=== PATIENT | male | born 1955 | race Caucasian/White ===

== ENCOUNTER 2020-07-17 08:27 | Inpatient (IN) | payer MEDICARE, BC ==
[2020-07-17] MEDS ORDERED: ONDANSETRON 4 MG/2 ML (SDV) Z0FRAN IVP PRN (10:00)
[2020-07-17] MEDS ORDERED: REMDESIVIR INJ 100 MG in NS (IVPB) 230 ML IV SCH (10:00)
[2020-07-17] MEDS ORDERED: MELATONIN 3 MG TABLET PO PRN (10:00)
[2020-07-17] MEDS ORDERED: HYDROcodone/APAP 5 MG/325 MG (LORTAB) TAB PO PRN (10:00)
[2020-07-17] MEDS ORDERED: ACETAMINOPHEN 500 MG TAB (TYLENOL) PO PRN (10:00)
[2020-07-17] MEDS ORDERED: guaiFENesin/CODEINE (ROBITUSSIN AC) 10ML UDC PO PRN (10:00)
[2020-07-17] MEDS ORDERED: LOPERAMIDE 2 MG (IMODIUM) TABLET PO PRN (10:00)
[2020-07-17] MEDS ORDERED: ALPRAZolam 0.25 MG (XANAX) TAB PO PRN (10:00)
[2020-07-17] MEDS ORDERED: CALCIUM CARBONATE 500 MG (TUMS) TAB.CHEW PO PRN (10:00)
[2020-07-17] MEDS ORDERED: DOCUSATE SODIUM 100 MG (COLACE) CAP PO PRN (10:00)
[2020-07-17] MEDS ORDERED: diphenhydrAMINE 25 MG TAB (BENADRYL) PO PRN (10:00)
[2020-07-17] MEDS ORDERED: cefTRIAXone FOR IV USE 1,000 MG in WATER (STERILE) FOR INJECTION 10 ML IV SCH (10:00)
[2020-07-17 11:23] LABS: ABG BASE EXCESS -2.6 MMOL/L (-2.5-2.5); ABG OXYGEN SATURATION 99 % (94-100); ABG PCO2 30 MMHG (35-45); ABG PH 7.45 (7.37-7.43); ABG PO2 130 MMHG (79-93); ABG TCO2 22.1 MMOL/L (21.0-31.0)
[2020-07-17 11:25] LABS: ALLENS TEST POSITIVE; INSPIRED O2 35 L AT 95%; PATIENT TEMP 35.2; VENTILATOR NO
--- NOTE | 2020-07-17 11:38 | History & Physical ---
History of Present Illness HPI/Chief Complaint CC: Ventricular tachycardia with COVID-19 PNA HPI: This is a 65yoWM clinic patient of Ata Adair in [facility] and Dr Guerra Cardiology at [place] who presents to the [facility] ICU after transferred from [facility] due to V-tach on telemetry non-sustained and asymptomatic. Patient had been admitted to [facility] for the past 3 days for COVID-19 PNA with hypoxia along with bacterial PNA. Patient was requiring increased O2 supplement at 12L/min and placed on Vapotherm the morning of transfer but he was feeling better overall. V-tach no kimberly on tely and Dr Maldonado recommended transferring over to [facility] since [place] was on diversion. Patient has new onset DM HGA1C was 10 on admit and placed on insulin due to Decadron administration. Patient is a poor historian and was the one who told me had had CABG hx and 6 stents in the past after I specifically asked him if he had any heart issues and if he saw Cardiology in follow up. Source: patient, RN/MD, old records Exam Limitations: no limitations Date Seen 07/17/20 Time Seen by a Provider: 11:30 Attending Physician Maye Kelley DO PCP Referring Physician Date of Admission Jul 17, 2020 at 11:07 Home Medications & Allergies Home Medications Reviewed patient Home Medication Reconciliation performed by pharmacy medication reconciliations cotton program technician and/or nursing. Patients Allergies have been reviewed. Allergies Allergies Coded Allergies No Known Drug Allergies ([id number]/30/20) Past Geqjkxo-Nmnzqe-Mykzax Hx Past Med/Social Hx: Reviewed Nursing Past Med/Soc Hx, Reviewed and Corrections made Patient Social History Marrital Status: Employed/Student: employed ([employer] in [place]) Alcohol Use: Denies Use Smoking Status: Never a Smoker Immunizations Up To Date Date of Influenza Vaccine: Apr 18, 2020 Past Medical History Surgeries: CABG, Coronary Stent Cardiac: High Cholesterol, Hypertension Endocrine: Diabetes, Insulin dep (new dx 07/17/20) Review of Systems Constitutional: see HPI Respiratory: dyspnea on exertion Physical Exam Physical Exam Vital Signs Vital Signs - First Documented 07/17/20 07/17/20 07/17/20 07/17/20 11:09 12:00 13:26 14:20 Temp 35.2 Pulse 68 Resp 12 B/P (MAP) 140/78 (98) Pulse Ox 100 O2 Delivery Vapotherm O2 Flow Rate 35.00 95.00 FiO2 95 Capillary Refill : Height, Weight, BMI Height: '" Weight: lbs. oz. kg; BMI Method: General Appearance: No Apparent Distress, WD/WN, Chronically ill, Obese Eyes: Bilateral Eye Normal Inspection, Bilateral Eye PERRL HEENT: PERRL/EOMI, Normal ENT Inspection, Pharynx Normal Neck: Full Range of Motion, Normal Inspection, Non Tender, Supple, Carotid Bruit Respiratory: Chest Non Tender, Lungs Clear, No Accessory Muscle Use, No Respiratory Distress, Decreased Breath Sounds Cardiovascular: Regular Rate, Rhythm, No Edema, No Gallop, No JVD, No Murmur, Normal Peripheral Pulses Gastrointestinal: Normal Bowel Sounds, No Organomegaly, No Pulsatile Mass, Non Tender, Soft Back: Normal Inspection, No CVA Tenderness, No Vertebral Tenderness Extremity: Normal Capillary Refill, Normal Inspection, Normal Range of Motion, Non Tender, No Calf Tenderness, No Pedal Edema Neurologic/Psychiatric: Alert, Oriented x3, No Motor/Sensory Deficits, Normal Mood/Affect Skin: Normal Color, Warm/Dry Lymphatic: No Adenopathy Results Results/Procedures Labs Laboratory Tests 07/17/20 11:20 07/18/20 05:36 07/19/20 05:10 Patient resulted labs reviewed. Assessment/Plan Admission Diagnosis Assessment: COVID-19 PNA on Vapotherm V-tach on Tely at [facility] transferred for Cardiology CAD previous stents and CABG HTN New onset DM insulin dependence now hga1c 10 Plan: Insulin Cardiology Abx O2 Admission Status: Inpatient Order (span 2 midnights) Reason for Inpatient Admission: v tachy Diagnosis/Problems Diagnosis/Problems (1) COVID-19 (2) Ventricular tachycardia (3) CAD (coronary artery disease) (4) Hx of CABG (5) Diabetes mellitus, new onset (6) Obesity (7) Hypoxia (8) Hypertension MAYE KELLEY DO Jul 17, 2020 11:38
[2020-07-17 11:47] LABS: BASOPHILS % (AUTO) 0 % (0-10); EOSINOPHILS % (AUTO) 0 % (0-10); HEMATOCRIT 41 % (40-54); HEMOGLOBIN 13.8 g/dL (13.3-17.7); LYMPHOCYTES # (AUTO) 0.7 10^3/uL (1.0-4.0); LYMPHOCYTES % (AUTO) 11 % (12-44); MEAN CORPUSCULAR HEMOGLOBIN 28 pg (25-34); MEAN CORPUSCULAR HGB CONC 33 g/dL (32-36); MEAN CORPUSCULAR VOLUME 84 fL (80-99); MEAN PLATELET VOLUME 11.1 fL (9.0-12.2); MONOCYTES # (AUTO) 0.3 10^3/uL (0.0-1.0); MONOCYTES % (AUTO) 5 % (0-12); NEUTROPHILS # (AUTO) 5.1 10^3/uL (1.8-7.8); NEUTROPHILS % (AUTO) 80 % (42-75); PLATELET COUNT 318 10^3/uL (130-400); WHITE BLOOD COUNT 6.3 10^3/uL (4.3-11.0)
[2020-07-17 12:08] LABS: ALANINE AMINOTRANSFERASE 8 U/L (0-55); ALBUMIN 2.9 GM/DL (3.2-4.5); ALKALINE PHOSPHATASE 76 U/L (40-136); BILIRUBIN,TOTAL 0.3 MG/DL (0.1-1.0); BUN/CREATININE RATIO 24; CALCIUM 7.9 MG/DL (8.5-10.1); CARBON DIOXIDE 23 MMOL/L (21-32); CHLORIDE 99 MMOL/L (98-107); GFR ESTIMATED > 60; GLUCOSE 301 MG/DL (70-105); MAGNESIUM 2.6 MG/DL (1.6-2.4); POTASSIUM 4.4 MMOL/L (3.6-5.0); SODIUM 128 MMOL/L (135-145); TOTAL PROTEIN 6.1 GM/DL (6.4-8.2)
[2020-07-17] MEDS: inSUlin ASPART (NovoLOG) 1 UNIT/0.01 ML (CHARGE PER UNIT) SC SCH ×2 (12:40→17:22)
--- NOTE | 2020-07-17 12:53 | Pulmonary Consultation ---
History of Present Illness History of Present Illness Date Seen by Provider: Jul 17, 2020 Time Seen by Provider: 12:48 Date of Admission History of Present Illness 65yo pt admitted to [facility] secondary to COVID 19 and SOB, with hypoxia. Pt received all appropriate care at [facility] however continued to decline. Pt was transferred here as direct admit for higher level of care. Allergies and Home Medications Allergies Coded Allergies: No Known Drug Allergies (Unverified , 07/17/20) Home Medications Benzonatate 100 Mg Capsule, 100-200 MG PO Q4 -6H PRN for COUGH, (Reported) Carvedilol 12.5 Mg Tablet, 12.5 MG PO BID, (Reported) Clonidine HCl 0.1 Mg Tablet, 0.1 MG PO BID, (Reported) Felodipine 5 Mg Tab.er.24h, 5 MG PO DAILY, (Reported) Lisinopril 40 Mg Tablet, 40 MG PO HS, (Reported) Lovastatin 40 Mg Tablet, 40 MG PO HS, (Reported) Multivit-Min/FA/Lycopene/Lut 1 Each Tablet, 1 EACH PO DAILY, (Reported) Omeprazole 40 Mg Capsule.dr, 40 MG PO DAILY, (Reported) Promethazine HCl/Codeine 5 Ml Syrup, 5 ML PO Q4 -6H PRN for COUGH, (Reported) Terazosin HCl 5 Mg Capsule, 5 MG PO HS, (Reported) Past Ofdrzrn-Clqqnt-Qmmfbd Hx Immunizations Up To Date Date of Influenza Vaccine: Apr 18, 2020 Review of Systems Time Seen by Provider: 12:52 Sepsis Event Evaluation Height, Weight, BMI Height: '" Weight: lbs. oz. kg; BMI Method: Exam Exam Vital Signs Date Time Temp Pulse Resp B/P (MAP) Pulse Ox O2 Delivery O2 Flow Rate FiO2 07/17/20 11:09 35.2 140/78 (98) 100 Vapotherm 35.00 95.00 Height & Weight Height: '" Weight: lbs. oz. kg; BMI Method: Results Lab Laboratory Tests 07/17/20 11:20 Assessment/Plan Assessment/Plan Acute respiratory failure secondary to COVID PNA -Currently requiring 100% Vapotherm -Remdesivir -Decadron -S/p CVP -Labs reviewed -CXR pending Hyponatremia -Monitor Vtach episodes at [facility] -Cardiology following AMBROSIO GUEVARA DO Jul 17, 2020 12:53
[2020-07-17 14:04] LABS: BILIRUBIN,URINE NEGATIVE (NEGATIVE); CLARITY,URINE CLEAR; COLOR,URINE YELLOW; GLUCOSE, URINE (UA) 2+ (NEGATIVE); KETONES,URINE NEGATIVE (NEGATIVE); LEUKOCYTE ESTERASE ,URINE NEGATIVE (NEGATIVE); NITRITE,URINE NEGATIVE (NEGATIVE); PROTEIN,URINE TRACE (NEGATIVE)
[2020-07-17 14:17] LABS: AMORPHOUS SEDIMENT,UR FEW AMOR URATES /LPF; BACTERIA,URINE TRACE /HPF; SQUAMOUS EPITHELIAL CELL,UR 0-2 /HPF
[2020-07-17] MEDS ORDERED: PROM5SYR PO (14:21)
[2020-07-17] MEDS ORDERED: OMEP40CA27 PO (14:21)
[2020-07-17] MEDS ORDERED: FLD5TCR PO (14:21)
[2020-07-17] MEDS ORDERED: LOVA40TA2 PO (14:21)
[2020-07-17] MEDS ORDERED: CLN.1T PO (14:21)
[2020-07-17] MEDS ORDERED: TERA5CAP3 PO (14:21)
[2020-07-17] MEDS ORDERED: LISI40TA PO (14:21)
[2020-07-17] MEDS ORDERED: CARV12.53 PO (14:21)
[2020-07-17] MEDS ORDERED: MULT-1029 PO (14:21)
[2020-07-17] MEDS ORDERED: BENZ-36 PO (14:21)
--- NOTE | 2020-07-17 14:22 | NUR ---
UNABLE TO SPEAK WITH PT AT THIS TIME- I REACHED OUT TO HIS (THEO) AND WENT THRU THE EXT MED HISTORY TO COMPLETE THE MED REC THEO WAS ABLE TO LIST THE PTS MEDS WELL WHEN/HOW HE TAKES EACH ACCORDING TO THEO HE HAD BEEN ON ASPIRIN 81MG 1 TAB 3 TIMES WEEKLY HOWEVER SHE DOES NOT THINK HE IS STILL TAKING, THEREFORE I DID NOT INCLUDE IT ON THE MED REC OTC MEDS: MTV
--- NOTE | 2020-07-17 14:40 | Diagnostic Imaging Report ---
INDICATION: COVID positive. Time of exam 2:17 PM No prior studies are available for comparison. Changes of median sternotomy and CABG are noted. There are some patchy airspace infiltrates right mid-lower lung field. Minimal infiltrate left base is also seen. There is no effusion or pneumothorax. Pulmonary vascularity is normal. IMPRESSION: Patchy bilateral pulmonary infiltrates consistent with pneumonia. Dictated by: Dictated on workstation # [id number]
[2020-07-17 15:05] VITALS: BP 126/76
[2020-07-17] MEDS ORDERED: RT-ALBUTEROL INHALER HFA (VENTOLIN HFA) 18 GM IH PRN (15:15)
--- NOTE | 2020-07-17 16:21 | NUR ---
DR SPENCER CALLED NEW ORDERS RECEIVED. SEE ORDER HX
[2020-07-17] MEDS ORDERED: AMIODARONE INJECTION 150 MG in D5W 100 ML IVPB 100 ML IV ONE (16:30)
[2020-07-17] MEDS: inSUlin ASPART (NovoLOG) 1 UNIT/0.01 ML (CHARGE PER UNIT) SQ SCH ×2 (17:22→20:41)
[2020-07-17] MEDS: AMIODARONE INJECTION 450 MG in D5W IV SOLUTION (EXCEL) 250 ML IV SCH (17:23)
--- NOTE | 2020-07-17 19:07 | Consultation-Cardiology ---
HPI-Cardiology Cardiology Consultation: Date of Consultation 07/17/20 Time Seen by a Provider: 18:30 Date of Admission Attending Physician Maye Mistry DO Admitting Physician Consulting Physician KERRI SPENCER MD, MA, FACP, FACC, [facility], CCDS Physician requesting consult: Dr Mistry HPI: Chief Complaint: Reason for consultation: Runs of NSVT HPI 65 yo man transferred to this hosp from the [facility] where he had been admitted to Dr Mistry for COVID pneumonia and hypoxia. Had had runs of NSVT last night w/o any symptoms. Denies cp or palp or syncope. Less short of breath than at time of admission. Denies swelling. Some gen malaise present Review of Systems-Cardiology Review of Systems Constitutional: malaise, tiredness; No weight loss, No weight gain Eyes: No vision change Ears/Nose/Throat: No ear discharge, No nasal drainage, No recent hearing loss Respiratory: As described under HPI Cardiovascular: As described under HPI Gastrointestinal: No diarrhea, No nausea, No vomiting Genitourinary: No dysuria, No hematuria, No urine frequency changes Musculoskeletal: No back pain, No joint pain Skin: No rash, No ulcerations Psychiatric/Neurological: No seizure, No focal weakness, No syncope Hematologic: No bleeding abnormalities GRJ-Ystdhu-Uzrkrb Hx Immunizations Up To Date Date of Influenza Vaccine: Apr 18, 2020 Past Medical History PMH As described under Assessment. Family Medical History Family Medical History: Does not report fam h/o early CAD Allergies and Home Medications Allergies Coded Allergies: No Known Drug Allergies (Unverified , 07/17/20) Home Medications Benzonatate 100 Mg Capsule, 100-200 MG PO Q4 -6H PRN for COUGH, (Reported) Carvedilol 12.5 Mg Tablet, 12.5 MG PO BID, (Reported) Clonidine HCl 0.1 Mg Tablet, 0.1 MG PO BID, (Reported) Felodipine 5 Mg Tab.er.24h, 5 MG PO DAILY, (Reported) Lisinopril 40 Mg Tablet, 40 MG PO HS, (Reported) Lovastatin 40 Mg Tablet, 40 MG PO HS, (Reported) Multivit-Min/FA/Lycopene/Lut 1 Each Tablet, 1 EACH PO DAILY, (Reported) Omeprazole 40 Mg Capsule., 40 MG PO DAILY, (Reported) Promethazine HCl/Codeine 5 Ml Syrup, 5 ML PO Q4 -6H PRN for COUGH, (Reported) Terazosin HCl 5 Mg Capsule, 5 MG PO HS, (Reported) Patient Home Medication List Home Medication List Reviewed: Yes Physical Exam-Cardiology Physical Exam Vital Signs/I&O 07/17/20 07/17/20 07/17/20 07/17/20 11:09 11:30 12:00 13:00 Temp 35.2 Resp 12 16 B/P (MAP) 140/78 (98) 121/78 (92) 127/70 (89) Pulse Ox 100 70 97 99 O2 Delivery Vapotherm Vapotherm Vapotherm Vapotherm O2 Flow Rate 35.00 15.00 35.00 35.00 95.00 80.00 80.00 07/17/20 07/17/20 07/17/20 07/17/20 13:26 14:00 14:20 14:30 Pulse 68 Resp 19 B/P (MAP) 126/76 (93) Pulse Ox 100 O2 Delivery Vapotherm Vapotherm Vapotherm O2 Flow Rate 35.00 35.00 35.00 80.00 60.00 FiO2 95 07/17/20 07/17/20 07/17/20 07/17/20 15:00 15:05 15:20 16:00 Temp 35.2 Pulse 68 Resp 15 8 B/P (MAP) 120/85 (97) 127/91 (103) Pulse Ox 94 100 91 98 O2 Delivery Vapotherm Vapotherm Vapotherm O2 Flow Rate 35.00 35.00 35.00 60.00 60.00 FiO2 65 07/17/20 07/17/20 07/17/20 16:03 17:00 18:00 Temp 35.6 Pulse 71 74 Resp 16 18 B/P (MAP) 133/86 (102) 125/75 (92) Pulse Ox 94 97 O2 Delivery Vapotherm Vapotherm O2 Flow Rate 35.00 35.00 60.00 60.00 Capillary Refill : Constitutional: AAO x 3, well-developed, well-nourished HEENT: EOMI, hearing is well preserved; No xanthelasmas are seen Neck: carotid pulses are 2 + bilaterally, with good upstrokes Respiratory: No accessory muscle use; other (fair to good, bilat air entry) Cardiovascular: regular rate-rhythm, S1 and S2, systolic murmur (faint ANMOL at card base) Gastrointestinal: No tender; soft; No guarding, No rebound; audible bowel sounds Extremities: No clubbing, No cyanosis, No significant edema Neurologic/Psychiatric: oriented x 3, other (moves all limbs equally) Skin: No rash, No ulcerations Data Review Labs Laboratory Tests 07/17/20 11:16: Blood Gas Puncture Site LEFT RADIAL, Blood Gas Patient Temperature 35.2, Arterial Blood pH 7.45H, Arterial Blood Partial Pressure CO2 30L, Arterial Blood Partial Pressure O2 130H, Arterial Blood HCO3 21L, Arterial Blood Total CO2 22.1, Arterial Blood Oxygen Saturation 99, Arterial Blood Base Excess -2.6L, Floyd Test POSITIVE, Blood Gas Ventilator Setting NO, Blood Gas Inspired Oxygen 35 L AT 95% 07/17/20 11:20: White Blood Count 6.3, Red Blood Count 4.94, Hemoglobin 13.8, Hematocrit 41, Mean Corpuscular Volume 84, Mean Corpuscular Hemoglobin 28, Mean Corpuscular Hemoglobin Concent 33, Red Cell Distribution Width 11.9, Platelet Count 318, Mean Platelet Volume 11.1, Immature Granulocyte % (Auto) 4, Neutrophils (%) (Auto) 80H, Lymphocytes (%) (Auto) 11L, Monocytes (%) (Auto) 5, Eosinophils (%) (Auto) 0, Basophils (%) (Auto) 0, Neutrophils # (Auto) 5.1, Lymphocytes # (Auto) 0.7L, Monocytes # (Auto) 0.3, Eosinophils # (Auto) 0.0, Basophils # (Auto) 0.0, Immature Granulocyte # (Auto) 0.3H, D-Dimer 0.60H, Sodium Level 128L, Potassium Level 4.4, Chloride Level 99, Carbon Dioxide Level 23, Anion Gap 6, Blood Urea Nitrogen 26H, Creatinine 1.10, Estimat Glomerular Filtration Rate > 60, BUN/Creatinine Ratio 24, Glucose Level 301H, Calcium Level 7.9L, Corrected Calcium 8.8, Magnesium Level 2.6H, Total Bilirubin 0.3, Aspartate Amino Transf (AST/SGOT) 23, Alanine Aminotransferase (ALT/SGPT) 8, Alkaline Phosphatase 76, Troponin I < 0.028, B-Type Natriuretic Peptide 38.5, Total Protein 6.1L, Albumin 2.9L, Procalcitonin 0.07 07/17/20 14:00: Urine Color YELLOW, Urine Clarity CLEAR, Urine pH 6.0, Urine Specific [place] 1.020, Urine Protein TRACEH, Urine Glucose (UA) 2+H, Urine Ketones NEGATIVE, Urine Nitrite NEGATIVE, Urine Bilirubin NEGATIVE, Urine Urobilinogen 0.2, Urine Leukocyte Esterase NEGATIVE, Urine RBC (Auto) 3+H, Urine RBC 10-25H, Urine WBC NONE, Urine Squamous Epithelial Cells 0-2, Urine Crystals PRESENTH, Urine Amorphous Sediment FEW [place] URATESH, Urine Bacteria TRACE, Urine Casts NONE, Urine Mucus NEGATIVE, Urine Culture Indicated NO 07/17/20 16:02: Glucometer 271H Laboratory Tests 07/17/20 11:20 A/P-Cardiology Assessment/Admission Diagnosis COVID-19 pneumonia NSVT, asymptomatic CAD. H/o CABG in 2001; subsequent coronary interventions by Dr Guerra at [facility], details unknown Ischemic cardiomyopathy. Echo of 07/17/20 shows LVEF 40-45%, anteroseptal and inferoseptal akinesis, PASP 20-25 mmHg No evidence of acute coronary syndrome Metabolic abnormalities: hyperglycemia and hyponatremia, possibly due to high- dose steroid therapy, managed by Med and ICU services Discussion and Recomendations Continue bb, BERNY inhibitor, and ASA for CAD and ischemic cm Add amiodarone Try to obtain cardiac records from [facility] Monitor labs Management of COVID-[address] Mistry and Dr Heredia Clinical Quality Measures DVT/VTE Risk/Contraindication: Risk Factor Score Per Nursin RFS Level Per Nursing on Admit: 4+=Very High KERRI SPENCER MD FACP [facility] CCDS Jul 17, 2020 19:07
[2020-07-17] MEDS: RT-ALBUTEROL INHALER HFA (VENTOLIN HFA) 18 GM IH SCH (19:14)
[2020-07-17] MEDS: SENNA W/DOCUSATE (SENOKOT S) TABLET PO SCH (20:40)
[2020-07-17] MEDS ORDERED: cloNIDine 0.1 MG (CATAPRES) TAB PO SCH (21:00)
[2020-07-17] MEDS ORDERED: CARVEDILOL 12.5 MG (COREG) TABLET PO SCH (21:00)
[2020-07-17] MEDS: TERAZOSIN 5 MG (HYTRIN) CAPSULE PO SCH (21:22)
[2020-07-17] MEDS: APIXABAN 5 MG (ELIQUIS) TABLET PO SCH (21:22)
[2020-07-17] MEDS: SIMvastatin 20 MG (ZOCOR) TAB PO SCH (21:22)
[2020-07-18] MEDS: AMIODARONE INJECTION 450 MG in D5W IV SOLUTION (EXCEL) 250 ML IV SCH (01:29)
--- NOTE | 2020-07-18 02:58 | NUR ---
DR CALLOWAY NOTIFIED OF PATIENT'S BRADYCARDIA. AGREED TO STOP AMIODARONE. NO FURTHER ORDERS AT THIS TIME. WILL CONTINUE TO CLOSELY MONITOR.
[2020-07-18] MEDS: RT-ALBUTEROL INHALER HFA (VENTOLIN HFA) 18 GM IH SCH ×5 (03:39→19:46)
[2020-07-18] MEDS ORDERED: ATROPINE INJ 0.4 MG/ML SDV ONE (04:44)
[2020-07-18] MEDS ORDERED: FAMOTIDINE 20 MG (PEPCID) TABLET PO PRN (04:45)
--- NOTE | 2020-07-18 04:48 | Pulmonary Progress Note ---
Subjective Time Seen by a Provider: 04:43 Sepsis Event Evaluation Height, Weight, BMI Height: '" Weight: lbs. oz. kg; BMI Method: Exam Exam Vital Signs Date Time Temp Pulse Resp B/P (MAP) Pulse Ox O2 Delivery O2 Flow Rate FiO2 07/18/20 03:40 93 Vapotherm 32.00 65 07/18/20 00:00 Vapotherm 35.00 60.00 07/17/20 23:45 36.8 07/17/20 23:00 56 16 107/73 (84) 97 Vapotherm 35.00 60.00 07/17/20 22:00 65 17 116/86 (96) 98 Vapotherm 35.00 60.00 07/17/20 21:04 93 Vapotherm 35.00 65 07/17/20 21:00 63 15 138/79 (98) 98 Vapotherm 35.00 60.00 07/17/20 20:45 35.00 65.00 07/17/20 20:45 Vapotherm 07/17/20 20:00 64 17 124/75 (91) 98 Vapotherm 35.00 60.00 07/17/20 20:00 93 Vapotherm 35.00 65 07/17/20 19:43 36.0 07/17/20 19:14 93 Vapotherm 35.00 65 07/17/20 19:00 68 07/17/20 19:00 68 16 121/78 (92) 94 Vapotherm 35.00 60.00 07/17/20 18:00 74 18 125/75 (92) 97 Vapotherm 35.00 60.00 07/17/20 17:00 71 16 133/86 (102) 94 Vapotherm 35.00 60.00 07/17/20 16:03 35.6 07/17/20 16:00 8 127/91 (103) 98 Vapotherm 35.00 60.00 07/17/20 15:20 91 Vapotherm 35.00 65 07/17/20 15:05 35.2 68 100 07/17/20 15:00 15 120/85 (97) 94 Vapotherm 35.00 60.00 07/17/20 14:30 Vapotherm 35.00 60.00 07/17/20 14:20 68 07/17/20 14:00 19 126/76 (93) 100 Vapotherm 35.00 80.00 07/17/20 13:26 Vapotherm 35.00 95 07/17/20 13:00 16 127/70 (89) 99 Vapotherm 35.00 80.00 07/17/20 12:00 12 121/78 (92) 97 Vapotherm 35.00 80.00 07/17/20 11:30 70 Vapotherm 15.00 07/17/20 11:09 35.2 140/78 (98) 100 Vapotherm 35.00 95.00 I & O 07/18/20 07:00 Intake Total 640 ml Output Total 1575 ml Balance -935 ml Height & Weight Height: '" Weight: lbs. oz. kg; BMI Method: Results Lab Laboratory Tests 07/17/20 11:20 Assessment/Plan Assessment/Plan Acute respiratory failure secondary to COVID PNA -Currently requiring 65% Vapotherm -Remdesivir -Decadron -S/p CVP -Labs reviewed -CXR pending Hyponatremia -Monitor Vtach episodes at [facility] -Cardiology following Bradycardia -Ammio gtt held secondary to bradycardia Hypotension -improved DVT/GI ppx -Eliquis per home med -AMBROSIO Lino DO Jul 18, 2020 04:48
[2020-07-18 05:53] LABS: BASOPHILS # (AUTO) 0.1 10^3/uL (0.0-0.1); BASOPHILS % (AUTO) 0 % (0-10); EOSINOPHILS # (AUTO) 0.1 10^3/uL (0.0-0.3); EOSINOPHILS % (AUTO) 1 % (0-10); HEMATOCRIT 42 % (40-54); LYMPHOCYTES % (AUTO) 14 % (12-44); MEAN CORPUSCULAR HEMOGLOBIN 28 pg (25-34); MEAN CORPUSCULAR HGB CONC 33 g/dL (32-36); MEAN CORPUSCULAR VOLUME 85 fL (80-99); MEAN PLATELET VOLUME 10.7 fL (9.0-12.2); MONOCYTES % (AUTO) 7 % (0-12); NEUTROPHILS # (AUTO) 10.5 10^3/uL (1.8-7.8); NEUTROPHILS % (AUTO) 74 % (42-75); PLATELET COUNT 347 10^3/uL (130-400); WHITE BLOOD COUNT 14.3 10^3/uL (4.3-11.0)
[2020-07-18 06:21] LABS: ALANINE AMINOTRANSFERASE 9 U/L (0-55); ALBUMIN 2.9 GM/DL (3.2-4.5); ALKALINE PHOSPHATASE 73 U/L (40-136); BILIRUBIN,TOTAL 0.3 MG/DL (0.1-1.0); BUN/CREATININE RATIO 24; CARBON DIOXIDE 22 MMOL/L (21-32); CHLORIDE 103 MMOL/L (98-107); CREATININE SERUM 1.04 MG/DL (0.60-1.30); GFR ESTIMATED > 60; MAGNESIUM 2.7 MG/DL (1.6-2.4); PHOSPHORUS 3.9 MG/DL (2.3-4.7); POTASSIUM 3.7 MMOL/L (3.6-5.0); SODIUM 133 MMOL/L (135-145); TOTAL PROTEIN 5.7 GM/DL (6.4-8.2)
[2020-07-18] MEDS ORDERED: DEXTROSE 50% 50 ML (IMS) SYR ONE (06:22)
[2020-07-18 06:23] LABS: GLUCOSE 49 MG/DL (70-105)
[2020-07-18 06:29] LABS: LYMPHOCYTES % (MANUAL) 8 %; MONOCYTES % (MANUAL) 8 %; NEUTROPHILS % (MANUAL) 84 %; RBC MORPH NORMAL
[2020-07-18] MEDS: inSUlin ASPART (NovoLOG) 1 UNIT/0.01 ML (CHARGE PER UNIT) SQ SCH ×4 (06:34→20:49)
--- NOTE | 2020-07-18 06:34 | NUR ---
0630 hrs CRITICAL BS [address] GUEVARA NOTIFIED AT BEDSIDE. ORDER RECEIVED FOR 1 AMP D50.
[2020-07-18] MEDS: MAGNESIUM 1 GM/100 ML IVPB 100 ML IV SCH (06:36)
[2020-07-18] MEDS: KCL 20 MEQ TAB (K-DUR) PO SCH (06:36)
[2020-07-18] MEDS: POTASSIUM CL 10MEQ/50ML IVPB 50 ML IV SCH (06:36)
[2020-07-18] MEDS: inSUlin ASPART (NovoLOG) 1 UNIT/0.01 ML (CHARGE PER UNIT) SC SCH ×3 (07:18→17:12)
--- NOTE | 2020-07-18 07:21 | Diagnostic Imaging Report ---
INDICATION: Hypoxia, COVID positive COMPARISON: 07/17/2020 FINDINGS: Single view chest demonstrates stable unchanged bilateral pulmonary infiltrates. There are a few questionable round lucencies in the left base which could represent pneumatoceles. Consider CT imaging. There was no pneumothorax or large effusion. Sternal wires midline. IMPRESSION: 1. Unchanged bilateral pulmonary infiltrates. 2. Nonspecific lucencies left base. Consider CT imaging. Report was faxed to [facility] Infection Control by codey at 7:20am. Dictated by: Dictated on workstation # [id number]
[2020-07-18] MEDS: SENNA W/DOCUSATE (SENOKOT S) TABLET PO SCH ×2 (08:07→20:48)
[2020-07-18] MEDS: cefTRIAXone FOR IV USE 1,000 MG in WATER (STERILE) FOR INJECTION 10 ML IV SCH (08:07)
[2020-07-18] MEDS: dexAMETHasone 6 MG TAB (DECADRON) PO SCH (08:07)
[2020-07-18] MEDS: PANTOPRAZOLE 40 MG (PROTONIX) TAB PO SCH (08:07)
[2020-07-18] MEDS: APIXABAN 5 MG (ELIQUIS) TABLET PO SCH ×2 (08:07→20:48)
[2020-07-18] MEDS: ASPIRIN E.C. 81 MG (ECOTRIN) TAB PO SCH (08:07)
[2020-07-18] MEDS ORDERED: REMDESIVIR INJ 100 MG in NS (IVPB) 230 ML IV SCH (10:00)
--- NOTE | 2020-07-18 10:40 | NUR ---
THIS RN SPOKE WITH PT'S THEO AND UPDATE GIVEN.
[2020-07-18] MEDS: amLODIPine 5 MG (NORVASC) TAB PO SCH (11:00)
[2020-07-18] MEDS: lisINopril 40 MG (PRINIVIL) TABLET PO SCH (11:00)
--- NOTE | 2020-07-18 12:22 | Progress Note - Hospitalist ---
Subjective HPI/CC On Admission Date Seen by Provider: Jul 18, 2020 Time Seen by Provider: 11:00 Subjective/Events-last exam Pt had a low sugar Will adjust insulin Monitor closely No CP Bradycardia noted Cardiology appreciated Vapotherm Review of Systems Pulmonary: Dyspnea Objective Exam Vital Signs Vital Signs Date Time Temp Pulse Resp B/P (MAP) Pulse Ox O2 Delivery O2 Flow Rate FiO2 07/19/20 03:22 93 Vapotherm 30.00 60 07/19/20 01:00 64 07/19/20 00:06 36.3 07/19/20 00:00 15 123/74 (90) Capillary Refill : General Appearance: No Apparent Distress, WD/WN, Chronically ill Respiratory: Lungs Clear Cardiovascular: Regular Rate, Rhythm Neurologic/Psychiatric: Alert, Oriented x3, No Motor/Sensory Deficits, Normal Mood/Affect Results/Procedures Lab Laboratory Tests 07/19/20 05:10 Patient resulted labs reviewed. Assessment/Plan Assessment and Plan Assess & Plan/Chief Complaint Assessment: COVID-19 PNA on Vapotherm V-tach on Tely at [facility] transferred for Cardiology CAD previous stents and CABG HTN New onset DM insulin dependence now hga1c 10 Plan: Insulin Cardiology Abx O2 07/18/20: Insulin decrease Cardiology appreciated O2 Clinical Quality Measures DVT/VTE Risk/Contraindication: Risk Factor Score Per Nursin RFS Level Per Nursing on Admit: 4+=Very High NANDINI KELLEY DO Jul 18, 2020 12:22
--- NOTE | 2020-07-18 18:52 | Progress Note - Cardiology ---
Cardiology SOAP Progress Note Subjective: No new symptoms Objective: I&O/Vital Signs 07/18/20 07/18/20 07/18/20 07/18/20 07:00 07:00 07:15 08:00 Pulse 42 37 49 Resp 11 17 B/P (MAP) 105/62 (76) 101/78 (86) Pulse Ox 92 95 95 O2 Delivery Vapotherm Vapotherm Vapotherm O2 Flow Rate 35.00 20.00 35.00 60.00 60.00 FiO2 60 07/18/20 07/18/20 07/18/20 07/18/20 08:30 09:00 10:00 10:25 Pulse 48 46 Resp 16 17 B/P (MAP) 131/79 (96) 118/70 (86) Pulse Ox 93 94 94 90 O2 Delivery Vapotherm Vapotherm Vapotherm Vapotherm O2 Flow Rate 35.00 35.00 35.00 20.00 60.00 60.00 FiO2 65 60 07/18/20 07/18/20 07/18/20 07/18/20 11:00 12:00 13:00 13:00 Pulse 51 66 74 60 Resp 16 24 16 B/P (MAP) 132/74 (93) 133/75 (106) 130/76 (96) Pulse Ox 94 92 94 O2 Delivery Vapotherm Vapotherm Vapotherm O2 Flow Rate 35.00 35.00 35.00 60.00 60.00 60.00 07/18/20 07/18/20 07/18/20 07/18/20 14:10 14:39 15:00 16:00 Pulse 68 66 72 Resp 20 16 20 B/P (MAP) 132/72 (92) 132/75 (94) 127/82 (97) Pulse Ox 92 92 93 94 O2 Delivery Vapotherm Vapotherm Vapotherm Vapotherm O2 Flow Rate 25.00 20.00 25.00 25.00 60.00 60.00 60.00 FiO2 60 07/18/20 07/18/20 07/18/20 16:00 17:00 18:00 Temp 35.6 Pulse 65 71 Resp 17 21 B/P (MAP) 130/81 (97) 131/85 (100) Pulse Ox 94 97 O2 Delivery Vapotherm Vapotherm O2 Flow Rate 25.00 25.00 60.00 60.00 07/18/20 00:00 Intake Total 390 ml Output Total 1375 ml Balance -985 ml Respiratory: No accessory muscle use Cardiovascular: regular rate-rhythm Results/Procedures: Labs Laboratory Tests 07/17/20 20:28: Glucometer 201H 07/18/20 05:36: White Blood Count 14.3H, Red Blood Count 4.99, Hemoglobin 14.0, Hematocrit 42, Mean Corpuscular Volume 85, Mean Corpuscular Hemoglobin 28, Mean Corpuscular Hemoglobin Concent 33, Red Cell Distribution Width 12.1, Platelet Count 347, Mean Platelet Volume 10.7, Immature Granulocyte % (Auto) 4, Neutrophils (%) (Auto) 74, Lymphocytes (%) (Auto) 14, Monocytes (%) (Auto) 7, Eosinophils (%) (Auto) 1, Basophils (%) (Auto) 0, Neutrophils # (Auto) 10.5H, Lymphocytes # (Auto) 2.0, Monocytes # (Auto) 1.0, Eosinophils # (Auto) 0.1, Basophils # (Auto) 0.1, Immature Granulocyte # (Auto) 0.6H, Neutrophils % (Manual) 84, Lymphocytes % (Manual) 8, Monocytes % (Manual) 8, Blood Morphology Comment NORMAL, Sodium Level 133L, Potassium Level 3.7, Chloride Level 103, Carbon Dioxide Level 22, Anion Gap 8, Blood Urea Nitrogen 25H, Creatinine 1.04, Estimat Glomerular Filtration Rate > 60, BUN/Creatinine Ratio 24, Glucose Level 49*L, Calcium Level 8.0L, Corrected Calcium 8.9, Phosphorus Level 3.9, Magnesium Level 2.7H, Total Bilirubin 0.3, Aspartate Amino Transf (AST/SGOT) 28, Alanine Aminotransferase (ALT/SGPT) 9, Alkaline Phosphatase 73, Troponin I < 0.028, Total Protein 5.7L, Albumin 2.9L 07/18/20 06:50: Glucometer 200H 07/18/20 08:24: Glucometer 151H 07/18/20 10:04: Glucometer 175H 07/18/20 15:59: Glucometer 234H Microbiology 07/17/20 MRSA Screen - Final, Complete MRSA not isolated Laboratory Tests 07/17/20 11:20 07/18/20 05:36 A/P: Assessment: COVID-19 pneumonia NSVT, asymptomatic, probably precipitated by COVID-19, no evidence of [place] Bradycardia on 07/18/10 CAD. H/o CABG in 2002: HOUGH to LAD, SVG to OM1, SVG to OM2, SVG to diag, SVG to RCA, LVEF approx 45; recores of subsequent coronary interventions by Dr Guerra at [facility] are not available Ischemic cardiomyopathy. Echo of 07/17/20 shows LVEF 40-45%, anteroseptal and inferoseptal akinesis, PASP 20-25 mmHg No evidence of acute coronary syndrome Metabolic abnormalities: hyperglycemia and hyponatremia, possibly due to high- dose steroid therapy, managed by Med and ICU services Plan: Hold clonidine and bb and amiodarone because of bradycardia Resume bb if bradycardia settles down Records of CABG of 2001 reviewed (see above). PCI records not available Monitor labs Management of COVID-[address] Mistry and KERRI Hedrick MD FACP [facility] CCDS Jul 18, 2020 18:52
[2020-07-18] MEDS: TERAZOSIN 5 MG (HYTRIN) CAPSULE PO SCH (20:52)
[2020-07-18] MEDS: SIMvastatin 20 MG (ZOCOR) TAB PO SCH (20:52)
[2020-07-19] MEDS: RT-ALBUTEROL INHALER HFA (VENTOLIN HFA) 18 GM IH SCH ×6 (03:24→22:07)
--- NOTE | 2020-07-19 04:10 | Pulmonary Progress Note ---
Subjective Time Seen by a Provider: 04:09 Subjective/Events-last exam No complications noted. Sepsis Event Evaluation Height, Weight, BMI Height: '" Weight: lbs. oz. kg; BMI Method: Exam Exam Vital Signs Date Time Temp Pulse Resp B/P (MAP) Pulse Ox O2 Delivery O2 Flow Rate FiO2 07/19/20 03:22 93 Vapotherm 30.00 60 07/19/20 00:28 Vapotherm 30.00 65.00 07/19/20 00:06 36.3 07/19/20 00:00 64 15 123/74 (90) 97 Vapotherm 25.00 60.00 07/18/20 23:00 69 18 110/71 (84) 96 Vapotherm 25.00 60.00 07/18/20 22:00 75 16 113/77 (89) 92 Vapotherm 25.00 60.00 07/18/20 21:00 78 19 135/83 (100) 94 Vapotherm 25.00 60.00 07/18/20 20:54 Vapotherm 25.00 60.00 07/18/20 20:00 77 129/83 (98) 94 Vapotherm 25.00 60.00 07/18/20 20:00 93 Vapotherm 25.00 60 07/18/20 19:46 93 Vapotherm 25.00 60 07/18/20 19:00 77 18 127/87 (100) 96 Vapotherm 25.00 60.00 07/18/20 19:00 77 07/18/20 18:58 35.7 07/18/20 18:00 71 21 131/85 (100) 97 Vapotherm 25.00 60.00 07/18/20 17:00 65 17 130/81 (97) 94 Vapotherm 25.00 60.00 07/18/20 16:00 35.6 07/18/20 16:00 72 20 127/82 (97) 94 Vapotherm 25.00 60.00 07/18/20 15:00 66 16 132/75 (94) 93 Vapotherm 25.00 60.00 07/18/20 14:39 92 Vapotherm 20.00 60 07/18/20 14:10 68 20 132/72 (92) 92 Vapotherm 25.00 60.00 07/18/20 13:00 60 16 130/76 (96) 94 Vapotherm 35.00 60.00 07/18/20 13:00 74 07/18/20 12:00 66 24 133/75 (106) 92 Vapotherm 35.00 60.00 07/18/20 11:00 51 16 132/74 (93) 94 Vapotherm 35.00 60.00 07/18/20 10:25 90 Vapotherm 20.00 60 07/18/20 10:00 46 17 118/70 (86) 94 Vapotherm 35.00 60.00 07/18/20 09:00 48 16 131/79 (96) 94 Vapotherm 35.00 60.00 07/18/20 08:30 93 Vapotherm 35.00 65 07/18/20 08:00 49 17 101/78 (86) 95 Vapotherm 35.00 60.00 07/18/20 07:15 95 Vapotherm 20.00 60 07/18/20 07:00 37 07/18/20 07:00 42 11 105/62 (76) 92 Vapotherm 35.00 60.00 07/18/20 06:00 44 20 100/61 (74) 95 Vapotherm 35.00 60.00 07/18/20 05:00 45 24 118/74 (89) 95 Vapotherm 35.00 60.00 I & O 07/19/20 07:00 Intake Total 2055 ml Output Total 2780 ml Balance -725 ml Height & Weight Height: '" Weight: lbs. oz. kg; BMI Method: Results Lab Laboratory Tests 07/17/20 11:20 07/18/20 05:36 Assessment/Plan Assessment/Plan Acute respiratory failure secondary to COVID PNA -Currently requiring 60% Vapotherm -Remdesivir -Decadron -S/p CVP -Labs reviewed -CXR pending -Check CT of chest and abd with contrast PNA -Currently on ROcephin -Cultures pending -MRSA negative -Laps pending Hyponatremia -Monitor V[place] episodes [place] [facility] [place]Cardiology following Bradycardia -Ammio gtt held secondary to bradycardia Hypotension -improved DVT/GI ppx -Eliquis per home med -AMBROSIO Lino DO Jul 19, 2020 04:10
[2020-07-19] MEDS: POTASSIUM CL 10MEQ/50ML IVPB 50 ML IV SCH (05:42)
[2020-07-19] MEDS: MAGNESIUM 1 GM/100 ML IVPB 100 ML IV SCH (05:42)
[2020-07-19] MEDS: KCL 20 MEQ TAB (K-DUR) PO SCH (05:42)
[2020-07-19] MEDS: dexAMETHasone 6 MG TAB (DECADRON) PO SCH (06:00)
[2020-07-19] MEDS: inSUlin ASPART (NovoLOG) 1 UNIT/0.01 ML (CHARGE PER UNIT) SQ SCH ×4 (06:00→20:42)
[2020-07-19] MEDS: inSUlin ASPART (NovoLOG) 1 UNIT/0.01 ML (CHARGE PER UNIT) SC SCH ×3 (06:09→17:01)
[2020-07-19 06:30] LABS: CHLORIDE 100 MMOL/L (98-107); POTASSIUM 4.3 MMOL/L (3.6-5.0); SODIUM 131 MMOL/L (135-145)
[2020-07-19 06:31] LABS: CALCIUM 7.9 MG/DL (8.5-10.1); GLUCOSE 98 MG/DL (70-105)
[2020-07-19 06:33] LABS: CARBON DIOXIDE 23 MMOL/L (21-32)
[2020-07-19 06:35] LABS: CREATININE SERUM 0.91 MG/DL (0.60-1.30); GFR ESTIMATED > 60
[2020-07-19 06:36] LABS: BUN/CREATININE RATIO 21
[2020-07-19 06:37] LABS: MAGNESIUM 1.7 MG/DL (1.6-2.4)
--- NOTE | 2020-07-19 08:28 | Diagnostic Imaging Report ---
Indication: COVID positive, shortness of air. Time of exam: 2:17 AM Correlation is made with prior chest earlier same day. Changes of median sternotomy are noted. Bilateral infiltrates mid and lower lung pal persist showing no real change. There is no effusion or pneumothorax. There are changes of median sternotomy and CABG. Impression: No significant change in bilateral pulmonary infiltrates when compared to examination one day earlier. Dictated by: Dictated on workstation # [id number]
[2020-07-19] MEDS: cefTRIAXone FOR IV USE 1,000 MG in WATER (STERILE) FOR INJECTION 10 ML IV SCH (08:30)
[2020-07-19] MEDS: SENNA W/DOCUSATE (SENOKOT S) TABLET PO SCH ×2 (08:30→20:41)
[2020-07-19] MEDS: ASPIRIN E.C. 81 MG (ECOTRIN) TAB PO SCH (08:30)
[2020-07-19] MEDS: APIXABAN 5 MG (ELIQUIS) TABLET PO SCH ×2 (08:31→20:42)
[2020-07-19] MEDS: amLODIPine 5 MG (NORVASC) TAB PO SCH (08:31)
[2020-07-19] MEDS: PANTOPRAZOLE 40 MG (PROTONIX) TAB PO SCH (08:31)
[2020-07-19] MEDS: lisINopril 40 MG (PRINIVIL) TABLET PO SCH (08:31)
[2020-07-19 08:56] LABS: BASOPHILS % (AUTO) 0 % (0-10); EOSINOPHILS % (AUTO) 0 % (0-10); HEMATOCRIT 39 % (40-54); LYMPHOCYTES # (AUTO) 1.2 10^3/uL (1.0-4.0); LYMPHOCYTES % (AUTO) 12 % (12-44); MEAN CORPUSCULAR HEMOGLOBIN 28 pg (25-34); MEAN CORPUSCULAR HGB CONC 34 g/dL (32-36); MEAN CORPUSCULAR VOLUME 85 fL (80-99); MEAN PLATELET VOLUME 11.2 fL (9.0-12.2); MONOCYTES # (AUTO) 0.6 10^3/uL (0.0-1.0); MONOCYTES % (AUTO) 6 % (0-12); NEUTROPHILS # (AUTO) 7.9 10^3/uL (1.8-7.8); NEUTROPHILS % (AUTO) 78 % (42-75); PLATELET COUNT 310 10^3/uL (130-400); WHITE BLOOD COUNT 10.1 10^3/uL (4.3-11.0)
[2020-07-19] MEDS ORDERED: NS 100 ML (IVPB) BAG IV ONE (12:00)
[2020-07-19] MEDS ORDERED: HOLD METFORMIN - RECEIVED CONTRAST 20 ML VIAL IV SCH (12:00)
[2020-07-19] MEDS ORDERED: IOHEXOL 350 MG/ML 100 ML (OMNIPAQUE 350) VIAL IV ONE (12:00)
--- NOTE | 2020-07-19 12:16 | Progress Note - Hospitalist ---
Subjective HPI/CC On Admission Date Seen by Provider: Jul 19, 2020 Time Seen by Provider: 12:00 CC: Ventricular tachycardia with COVID-19 PNA HPI: This is a 65yoWM clinic patient of Ata Adair in [facility] and Dr Charlie Wiley at [place] who presents to the [facility] ICU after transferred from [facility] due to V-tach on telemetry non-sustained and asymptomatic. Patient had been admitted to [facility] for the past 3 days for COVID-19 PNA with hypoxia along with bacterial PNA. Patient was requiring increased O2 supplement at 12L/min and placed on Vapotherm the morning of transfer but he was feeling better overall. V-tach noted on tely and Dr Maldonado recommended transferring over to [facility] since [place] was on diversion. Patient has new onset DM HGA1C was 10 on admit and placed on insulin due to Decadron administration. Patient is a poor historian and was the one who told me had had CABG hx and 6 stents in the past after I sp ecifically asked him if he had any heart issues and if he saw Cardiology in follow up. Subjective/Events-last exam CT ordered by DR Heredia, no acute issues Breathing better Slow progress Monitoring closely High risk for decompensation Review of Systems General: Fatigue, Malaise Pulmonary: Dyspnea, Cough Objective Exam Vital Signs Vital Signs Date Time Temp Pulse Resp B/P (MAP) Pulse Ox O2 Delivery O2 Flow Rate FiO2 07/19/20 18:00 87 10 133/82 (99) 95 Vapotherm 30.00 60.00 07/19/20 16:01 36.1 07/19/20 15:42 60 Capillary Refill : General Appearance: No Apparent Distress, WD/WN, Chronically ill Respiratory: Chest Non Tender, Lungs Clear, Normal Breath Sounds, No Accessory Muscle Use, No Respiratory Distress Cardiovascular: Regular Rate, Rhythm, No Edema, No Gallop, No JVD, No Murmur, Normal Peripheral Pulses Neurologic/Psychiatric: Alert, Oriented x3, No Motor/Sensory Deficits, Normal Mood/Affect Results/Procedures Lab Laboratory Tests 07/19/20 05:10 07/19/20 05:30 07/19/20 11:50 Patient resulted labs reviewed. Assessment/Plan Assessment and Plan Assess & Plan/Chief Complaint Assessment: COVID-19 PNA on Vapotherm V-tach on Tely at [facility] transferred for Cardiology CAD previous stents and CABG HTN New onset DM insulin dependence now hga1c 10 Plan: Insulin Cardiology Abx O2 07/18/20: Insulin decrease Cardiology appreciated O2 07/19/20: Monitor in ICU Vtachy monitoring Diagnosis/Problems Diagnosis/Problems (1) COVID-19 (2) Ventricular tachycardia (3) CAD (coronary artery disease) (4) Hx of CABG (5) Diabetes mellitus, new onset (6) Obesity (7) Hypoxia (8) Hypertension Clinical Quality Measures DVT/VTE Risk/Contraindication: Risk Factor Score Per Nursin RFS Level Per Nursing on Admit: 4+=Very High NANDINI KELLEY DO Jul 19, 2020 12:16
[2020-07-19 12:28] LABS: CHLORIDE 99 MMOL/L (98-107); POTASSIUM 4.7 MMOL/L (3.6-5.0); SODIUM 130 MMOL/L (135-145)
[2020-07-19 12:30] LABS: CALCIUM 8.1 MG/DL (8.5-10.1); GLUCOSE 236 MG/DL (70-105)
[2020-07-19 12:32] LABS: CARBON DIOXIDE 23 MMOL/L (21-32)
[2020-07-19 12:34] LABS: GFR ESTIMATED > 60
[2020-07-19 12:35] LABS: BUN/CREATININE RATIO 22
--- NOTE | 2020-07-19 13:08 | Diagnostic Imaging Report ---
PROCEDURE: CT chest, abdomen, and pelvis with contrast. TECHNIQUE: Multiple contiguous axial images were obtained through the chest, abdomen, and pelvis after the administration of intravenous contrast. Auto Exposure Controls were utilized during the CT exam to meet ALARA standards for radiation dose reduction. INDICATION: COVID positive and possible mass. No prior studies are available for comparison. CT CHEST: No axillary lymphadenopathy is seen. No definite mediastinal or hilar lymphadenopathy is seen. There is no pericardial fluid. Trace bilateral pleural effusions are identified. Patchy airspace and groundglass infiltrates are identified in bilateral upper and lower lobes consistent with pneumonia. No parenchymal mass is seen. There are changes of median sternotomy. IMPRESSION: Bilateral airspace and ground glass pulmonary infiltrates consistent with pneumonia. No other significant abnormality is detected. CT ABDOMEN AND PELVIS: Liver and gallbladder are unremarkable. There is no biliary ductal dilatation. Pancreas and spleen are unremarkable. No adrenal mass is detected. Kidneys contain numerous cortical low density suggestive of cysts. No hydronephrosis is identified. Aorta is heavily calcified but non-aneurysmal. Colon demonstrates moderate stool. Small bowel is nondistended. No definite free fluid or fluid collection is identified. Bladder is decompressed by Fierro catheter. Prostate is unremarkable. No abdominal or pelvic lymphadenopathy is seen. Bony structures are nonacute. IMPRESSION: Moderate stool in the colon. No acute feature in the abdomen or pelvis is seen. No mass or lymphadenopathy is identified. Dictated by: Dictated on workstation # [id number]
--- NOTE | 2020-07-19 14:47 | Progress Note - Cardiology ---
Cardiology SOAP Progress Note Subjective: No new symptoms Objective: I&O/Vital Signs 07/19/20 07/19/20 07/19/20 07/19/20 03:00 03:22 04:00 05:00 Pulse 73 72 65 Resp 12 8 13 B/P (MAP) 131/76 (94) 130/81 (100) 113/77 (90) Pulse Ox 92 93 95 96 O2 Delivery Vapotherm Vapotherm Vapotherm Vapotherm O2 Flow Rate 30.00 30.00 30.00 30.00 65.00 65.00 65.00 FiO2 60 07/19/20 07/19/20 07/19/20 07/19/20 06:00 06:46 07:00 08:00 Pulse 67 71 67 63 Resp 13 16 16 B/P (MAP) 126/86 (101) 127/81 (96) 137/76 (96) Pulse Ox 92 95 93 O2 Delivery Vapotherm Vapotherm Vapotherm O2 Flow Rate 30.00 30.00 30.00 65.00 65.00 65.00 07/19/20 07/19/20 07/19/20 07/19/20 08:03 08:18 08:29 08:39 Temp 36.0 Pulse Ox 94 90 O2 Delivery Vapotherm Vapotherm O2 Flow Rate 30.00 30.00 30.00 60.00 FiO2 60 60 07/19/20 07/19/20 07/19/20 07/19/20 09:00 10:00 10:50 11:00 Pulse 77 74 77 Resp 21 23 B/P (MAP) 131/75 (93) 138/75 (96) 124/80 (95) Pulse Ox 92 93 93 91 O2 Delivery Vapotherm Vapotherm Vapotherm Vapotherm O2 Flow Rate 30.00 30.00 30.00 30.00 60.00 60.00 60.00 FiO2 60 07/19/20 07/19/20 07/19/20 11:45 12:00 13:03 Temp 36.0 Pulse 83 83 Resp 9 B/P (MAP) 136/90 (105) Pulse Ox 90 O2 Delivery Vapotherm O2 Flow Rate 30.00 60.00 07/19/20 00:00 Intake Total 1200 ml Output Total 1880 ml Balance -680 ml Respiratory: No accessory muscle use Cardiovascular: regular rate-rhythm Results/Procedures: Labs Laboratory Tests 12/31/20 15:59: Glucometer 234H 07/18/20 20:31: Glucometer 194H 07/19/20 05:10: Sodium Level 131L, Potassium Level 4.3, Chloride Level 100, Carbon Dioxide Level 23, Anion Gap 8, Blood Urea Nitrogen 19H, Creatinine 0.91, Estimat Glomerular Filtration Rate > 60, BUN/Creatinine Ratio 21, Glucose Level 98, Calcium Level 7.9L, Phosphorus Level 3.8, Magnesium Level 1.7, Procalcitonin 0.14H 07/19/20 05:30: White Blood Count 10.1, Red Blood Count 4.59, Hemoglobin 13.0L, Hematocrit 39L, Mean Corpuscular Volume 85, Mean Corpuscular Hemoglobin 28, Mean Corpuscular Hemoglobin Concent 34, Red Cell Distribution Width 12.2, Platelet Count 310, Mean Platelet Volume 11.2, Immature Granulocyte % (Auto) 4, Neutrophils (%) (Auto) 78H, Lymphocytes (%) (Auto) 12, Monocytes (%) (Auto) 6, Eosinophils (%) (Auto) 0, Basophils (%) (Auto) 0, Neutrophils # (Auto) 7.9H, Lymphocytes # (Auto) 1.2, Monocytes # (Auto) 0.6, Eosinophils # (Auto) 0.0, Basophils # (Auto) 0.0, Immature Granulocyte # (Auto) 0.4H 07/19/20 06:00: Glucometer 96 07/19/20 11:46: Glucometer 229H 07/19/20 11:50: Sodium Level 130L, Potassium Level 4.7, Chloride Level 99, Carbon Dioxide Level 23, Anion Gap 8, Blood Urea Nitrogen 22H, Creatinine 1.00, Estimat Glomerular Filtration Rate > 60, BUN/Creatinine Ratio 22, Glucose Level 236H, Calcium Level 8.1L Microbiology 07/17/20 MRSA Screen - Final, Complete MRSA not isolated Laboratory Tests 07/18/20 05:36 07/19/20 05:10 07/19/20 05:30 07/19/20 11:50 A/P: Assessment: COVID-19 pneumonia NSVT, asymptomatic, probably precipitated by COVID-19, no evidence of MS Bradycardia on 07/18/10 CAD. H/o CABG in 2001: HOUGH to LAD, SVG to OM1, SVG to OM2, SVG to diag, SVG to RCA, LVEF approx 45; recores of subsequent coronary interventions by Dr Guerra at [facility] are not available Ischemic cardiomyopathy. Echo of 07/17/20 shows LVEF 40-45%, anteroseptal and inferoseptal akinesis, PASP 20-25 mmHg No evidence of acute coronary syndrome Metabolic abnormalities: hyperglycemia and hyponatremia, possibly due to high- dose steroid therapy, managed by Med and ICU services Plan: Bradycardia appears to be settling down. Resume bb in a lower dose and titrate up, if tolerated Monitor labs Management of COVID-[address] Mistry and KERRI Hedrick MD FACP [facility] CCDS Jul 19, 2020 14:47
--- NOTE | 2020-07-19 16:50 | NUR ---
THIS RN SPOKE WITH PT AT THIS TIME. UPDATED ON PT STATUS ET UPDATES FOR DAY. ANSWERED WIFES QUESTIONS.
--- NOTE | 2020-07-19 18:20 | NUR ---
PT THEO CALLED BACK WITH FURTHER QUESTIONS REGARDING PT CARE. ANSWERED QUESTIONS.
[2020-07-19] MEDS ORDERED: CARVEDILOL 6.25 MG (COREG) TAB ONE (20:09)
[2020-07-19] MEDS: CARVEDILOL 6.25 MG (COREG) TAB PO SCH (20:42)
[2020-07-19] MEDS: SIMvastatin 20 MG (ZOCOR) TAB PO SCH (20:42)
[2020-07-19] MEDS: TERAZOSIN 5 MG (HYTRIN) CAPSULE PO SCH (20:42)
[2020-07-20] MEDS: RT-ALBUTEROL INHALER HFA (VENTOLIN HFA) 18 GM IH SCH ×6 (01:31→21:07)
[2020-07-20 05:21] LABS: BASOPHILS % (AUTO) 0 % (0-10); EOSINOPHILS # (AUTO) 0.1 10^3/uL (0.0-0.3); EOSINOPHILS % (AUTO) 0 % (0-10); HEMATOCRIT 42 % (40-54); HEMOGLOBIN 14.1 g/dL (13.3-17.7); LYMPHOCYTES # (AUTO) 2.8 10^3/uL (1.0-4.0); LYMPHOCYTES % (AUTO) 18 % (12-44); MEAN CORPUSCULAR HEMOGLOBIN 28 pg (25-34); MEAN CORPUSCULAR HGB CONC 33 g/dL (32-36); MEAN CORPUSCULAR VOLUME 85 fL (80-99); MEAN PLATELET VOLUME 10.7 fL (9.0-12.2); MONOCYTES % (AUTO) 7 % (0-12); NEUTROPHILS # (AUTO) 10.8 10^3/uL (1.8-7.8); NEUTROPHILS % (AUTO) 71 % (42-75); PLATELET COUNT 353 10^3/uL (130-400); WHITE BLOOD COUNT 15.3 10^3/uL (4.3-11.0)
[2020-07-20 05:33] LABS: CHLORIDE 101 MMOL/L (98-107); POTASSIUM 4.2 MMOL/L (3.6-5.0); SODIUM 133 MMOL/L (135-145)
[2020-07-20 05:34] LABS: CALCIUM 8.4 MG/DL (8.5-10.1)
[2020-07-20 05:36] LABS: CARBON DIOXIDE 23 MMOL/L (21-32)
[2020-07-20] MEDS ORDERED: DEXTROSE 50% 50 ML (IMS) SYR ONE (05:37)
[2020-07-20 05:38] LABS: CREATININE SERUM 0.98 MG/DL (0.60-1.30); PHOSPHORUS 4.1 MG/DL (2.3-4.7)
[2020-07-20 05:39] LABS: BUN/CREATININE RATIO 22; GLUCOSE 43 MG/DL (70-105)
[2020-07-20 05:40] LABS: GFR ESTIMATED > 60
[2020-07-20 05:41] LABS: MAGNESIUM 1.9 MG/DL (1.6-2.4)
[2020-07-20] MEDS: inSUlin ASPART (NovoLOG) 1 UNIT/0.01 ML (CHARGE PER UNIT) SC SCH ×3 (05:50→17:45)
[2020-07-20] MEDS: POTASSIUM CL 10MEQ/50ML IVPB 50 ML IV SCH (05:50)
[2020-07-20] MEDS: dexAMETHasone 6 MG TAB (DECADRON) PO SCH (05:50)
[2020-07-20] MEDS: MAGNESIUM 1 GM/100 ML IVPB 100 ML IV SCH (05:50)
[2020-07-20] MEDS: KCL 20 MEQ TAB (K-DUR) PO SCH (05:50)
[2020-07-20] MEDS: inSUlin ASPART (NovoLOG) 1 UNIT/0.01 ML (CHARGE PER UNIT) SQ SCH ×4 (05:50→19:54)
--- NOTE | 2020-07-20 06:23 | NUR ---
PT AM LAB GLUCOSE LEVEL RESULTS AT 43. FINGER STICK BLOOD GLUCOSE RESULTED IN 52. PT IS ALERT ON ASSESSMENT. ORANGE JUICE WITH SUGAR AND PEANUT BUTTER DELANEY CRACKERS WERE GIVEN. E-ICU CALLED AND UPDATED. FINGER STICK GLUCOSE AFTER SNACK WAS 76. WILL CONTINUE TO MONITOR.
--- NOTE | 2020-07-20 07:28 | Progress Note - Hospitalist ---
Subjective HPI/CC On Admission Date Seen by Provider: Jul 20, 2020 Time Seen by Provider: 11:00 CC: Ventricular tachycardia with COVID-19 PNA HPI: This is a 65yoWM clinic patient of Ata Adair in [facility] and Dr Charlie Wiley at [place] who presents to the [facility] ICU after transferred from [facility] due to V-tach on telemetry non-sustained and asymptomatic. Patient had been admitted to [facility] for the past 3 days for COVID-19 PNA with hypoxia along with bacterial PNA. Patient was requiring increased O2 supplement at 12L/min and placed on Vapotherm the morning of transfer but he was feeling better overall. V-tach noted on tely and Dr Maldonado recommended transferring over to [facility] since [place] was on diversion. Patient has new onset DM HGA1C was 10 on admit and placed on insulin due to Decadron administration. Patient is a poor historian and was the one who told me had had CABG hx and 6 stents in the past after I sp ecifically asked him if he had any heart issues and if he saw Cardiology in follow up. Subjective/Events-last exam Patient doing better Moving to [facility] CV finally in will give today Updated his No issues No pain DC Levemir due to low sugars Review of Systems General: Fatigue, Malaise Pulmonary: Dyspnea, Cough Objective Exam Vital Signs Vital Signs Date Time Temp Pulse Resp B/P (MAP) Pulse Ox O2 Delivery O2 Flow Rate FiO2 07/21/20 04:03 36.3 07/21/20 04:00 59 20 121/75 (90) 96 Vapotherm 35.00 50.00 07/21/20 02:04 50 Capillary Refill : General Appearance: No Apparent Distress, WD/WN, Chronically ill Respiratory: Chest Non Tender, Lungs Clear, Normal Breath Sounds, No Accessory Muscle Use, No Respiratory Distress Cardiovascular: Regular Rate, Rhythm, No Edema, No Gallop, No JVD, No Murmur, Normal Peripheral Pulses Neurologic/Psychiatric: Alert, Oriented x3, No Motor/Sensory Deficits, Normal Mood/Affect Results/Procedures Lab Laboratory Tests 07/21/20 04:37 Patient resulted labs reviewed. Assessment/Plan Assessment and Plan Assess & Plan/Chief Complaint Assessment: COVID-19 PNA on Vapotherm V-tach on Tely at [facility] transferred for Cardiology CAD previous stents and CABG HTN New onset DM insulin dependence now hga1c 10 Plan: Insulin Cardiology Abx O2 07/18/20: Insulin decrease Cardiology appreciated O2 07/19/20: Monitor in ICU Vtachy monitoring 07/20/20: Monitor closely CSD move Vapotherm Diagnosis/Problems Diagnosis/Problems (1) COVID-19 (2) Ventricular tachycardia (3) CAD (coronary artery disease) (4) Hx of CABG (5) Diabetes mellitus, new onset (6) Obesity (7) Hypoxia (8) Hypertension Clinical Quality Measures DVT/VTE Risk/Contraindication: Risk Factor Score Per Nursin RFS Level Per Nursing on Admit: 4+=Very High NANDINI KELLEY DO Jul 20, 2020 07:28
--- NOTE | 2020-07-20 07:50 | Diagnostic Imaging Report ---
INDICATION: COVID positive, shortness of air. TECHNIQUE: Single view chest 2:38 AM. CORRELATION STUDY: 07/19/2020 FINDINGS: Prior sternotomy changes. Heart size and mediastinum are generally stable. Bilateral pulmonary infiltrates particularly mid and lower lung pal left greater than right do persist. Findings however overall perhaps slightly improved. IMPRESSION: 1. Bilateral pulmonary infiltrates, stable to slightly improved. Dictated by: Dictated on workstation # [id number]
[2020-07-20] MEDS: CARVEDILOL 6.25 MG (COREG) TAB PO SCH ×2 (08:55→19:52)
[2020-07-20] MEDS: ASPIRIN E.C. 81 MG (ECOTRIN) TAB PO SCH (08:55)
[2020-07-20] MEDS: cefTRIAXone FOR IV USE 1,000 MG in WATER (STERILE) FOR INJECTION 10 ML IV SCH (08:55)
[2020-07-20] MEDS: APIXABAN 5 MG (ELIQUIS) TABLET PO SCH ×2 (08:55→19:51)
[2020-07-20] MEDS: SENNA W/DOCUSATE (SENOKOT S) TABLET PO SCH ×2 (08:55→19:51)
[2020-07-20] MEDS: PANTOPRAZOLE 40 MG (PROTONIX) TAB PO SCH (08:55)
[2020-07-20] MEDS: lisINopril 40 MG (PRINIVIL) TABLET PO SCH (08:55)
[2020-07-20] MEDS: amLODIPine 5 MG (NORVASC) TAB PO SCH (08:55)
--- NOTE | 2020-07-20 13:21 | Progress Note - Cardiology ---
Cardiology SOAP Progress Note Subjective: No new symptoms Objective: I&O/Vital Signs 07/20/20 07/20/20 07/20/20 07/20/20 01:25 01:31 02:00 03:00 Pulse 64 65 58 Resp 17 12 9 B/P (MAP) 127/79 (99) 137/79 (111) Pulse Ox 93 98 95 96 O2 Delivery Vapotherm Vapotherm Vapotherm Vapotherm O2 Flow Rate 35.00 35.00 35.00 35.00 65.00 65.00 65.00 FiO2 65 07/20/20 07/20/20 07/20/20 07/20/20 04:00 04:30 05:00 06:00 Temp 36.3 Pulse 52 48 49 Resp 13 13 16 B/P (MAP) 119/72 (94) 118/69 (92) 133/78 (96) Pulse Ox 96 94 91 O2 Delivery Vapotherm Vapotherm Vapotherm O2 Flow Rate 35.00 35.00 35.00 65.00 65.00 65.00 07/20/20 07/20/20 07/20/20 07/20/20 07:00 07:00 07:11 08:00 Pulse 44 48 45 Resp 11 14 B/P (MAP) 108/64 (79) 111/64 (80) Pulse Ox 97 99 96 O2 Delivery Vapotherm Vapotherm Vapotherm O2 Flow Rate 35.00 35.00 35.00 65.00 65.00 FiO2 65 07/20/20 07/20/20 07/20/20 07/20/20 08:00 09:00 10:00 10:52 Pulse 62 57 B/P (MAP) 119/78 (92) 132/73 (92) Pulse Ox 94 90 94 91 O2 Delivery Vapotherm Vapotherm Vapotherm Vapotherm O2 Flow Rate 95.00 35.00 35.00 35.00 65.00 65.00 FiO2 55 55 07/20/20 07/20/20 07/20/20 07/20/20 11:00 12:00 12:38 13:00 Pulse 74 64 63 72 Resp 16 19 16 B/P (MAP) 119/82 (94) 119/82 (94) 139/77 (97) Pulse Ox 89 93 92 O2 Delivery Vapotherm Vapotherm Vapotherm O2 Flow Rate 35.00 35.00 35.00 65.00 65.00 65.00 07/20/20 00:00 Intake Total 1860 ml Output Total 2125 ml Balance -265 ml Results/Procedures: Labs Laboratory Tests 07/19/20 16:00: Glucometer 234H 07/19/20 19:25: Glucometer 286H 07/20/20 04:43: White Blood Count 15.3H, Red Blood Count 4.99, Hemoglobin 14.1, Hematocrit 42, Mean Corpuscular Volume 85, Mean Corpuscular Hemoglobin 28, Mean Corpuscular Hemoglobin Concent 33, Red Cell Distribution Width 12.3, Platelet Count 353, Mean Platelet Volume 10.7, Immature Granulocyte % (Auto) 4, Neutrophils (%) (Auto) 71, Lymphocytes (%) (Auto) 18, Monocytes (%) (Auto) 7, Eosinophils (%) (Auto) 0, Basophils (%) (Auto) 0, Neutrophils # (Auto) 10.8H, Lymphocytes # (Auto) 2.8, Monocytes # (Auto) 1.0, Eosinophils # (Auto) 0.1, Basophils # (Auto) 0.0, Immature Granulocyte # (Auto) 0.6H, Sodium Level 133L, Potassium Level 4.2, Chloride Level 101, Carbon Dioxide Level 23, Anion Gap 9, Blood Urea Nitrogen 22H, Creatinine 0.98, Estimat Glomerular Filtration Rate > 60, BUN/Creatinine Ratio 22, Glucose Level 43*L, Calcium Level 8.4L, Phosphorus Level 4.1, Magnesium Level 1.9 07/20/20 05:44: Glucometer 52*L 07/20/20 06:19: Glucometer 76 07/20/20 10:44: Glucometer 275H Microbiology 07/17/20 MRSA Screen - Final, Complete MRSA not isolated Laboratory Tests 07/19/20 05:10 07/19/20 05:30 07/19/20 11:50 07/20/20 04:43 A/P: Assessment: COVID-19 pneumonia NSVT, asymptomatic, probably precipitated by COVID-19, no evidence of [place] Bradycardia on 07/18/10, amiodarone and beta-blockers d/c'd. resumed lower dose of bb on 07/19/20 No evidence of acute coronary syndrome CAD. - H/o CABG in 2001: HOUGH to LAD, SVG to OM1, SVG to OM2, SVG to diag, SVG to RCA, LVEF approx 45 - Cath [address] Guerra at [facility]: HOUGH to LAD patent, SVG to RCA patent, other grafts occluded; pt underwent stenting x 2 of the first OM of LCX Ischemic cardiomyopathy. Echo of 07/17/20 shows LVEF 40-45%, anteroseptal and inferoseptal akinesis, PASP 20-25 mmHg PAD: PCI to bilateral iliacs, L hypogastric, and L sup fem by Dr Guerra at [facility] Metabolic abnormalities: hyperglycemia and hyponatremia, possibly due to high- dose steroid therapy, managed by Med and ICU services Plan: Continue current regimen. Up-titrate beta-kanika if heart rate and bp tolerate Monitor labs Management of COVID-[address] Mistry and KERRI Hedrick MD FACP [facility] CCDS Jul 20, 2020 13:21
[2020-07-20] MEDS ORDERED: NS (IVPB) 250 ML ONE (16:57)
[2020-07-20] MEDS: SIMvastatin 20 MG (ZOCOR) TAB PO SCH (19:51)
[2020-07-20] MEDS: TERAZOSIN 5 MG (HYTRIN) CAPSULE PO SCH (19:52)
[2020-07-21] MEDS: RT-ALBUTEROL INHALER HFA (VENTOLIN HFA) 18 GM IH SCH ×6 (02:04→23:18)
[2020-07-21 04:48] LABS: BASOPHILS % (AUTO) 0 % (0-10); EOSINOPHILS % (AUTO) 0 % (0-10); HEMATOCRIT 40 % (40-54); HEMOGLOBIN 13.3 g/dL (13.3-17.7); LYMPHOCYTES # (AUTO) 1.6 10^3/uL (1.0-4.0); LYMPHOCYTES % (AUTO) 15 % (12-44); MEAN CORPUSCULAR HEMOGLOBIN 28 pg (25-34); MEAN CORPUSCULAR HGB CONC 33 g/dL (32-36); MEAN CORPUSCULAR VOLUME 85 fL (80-99); MEAN PLATELET VOLUME 10.8 fL (9.0-12.2); MONOCYTES # (AUTO) 0.6 10^3/uL (0.0-1.0); MONOCYTES % (AUTO) 5 % (0-12); NEUTROPHILS # (AUTO) 8.3 10^3/uL (1.8-7.8); NEUTROPHILS % (AUTO) 76 % (42-75); PLATELET COUNT 306 10^3/uL (130-400); WHITE BLOOD COUNT 10.9 10^3/uL (4.3-11.0)
[2020-07-21 05:05] LABS: CHLORIDE 101 MMOL/L (98-107); POTASSIUM 4.3 MMOL/L (3.6-5.0); SODIUM 133 MMOL/L (135-145)
[2020-07-21 05:06] LABS: CALCIUM 8.2 MG/DL (8.5-10.1)
[2020-07-21 05:07] LABS: GLUCOSE 75 MG/DL (70-105)
[2020-07-21 05:08] LABS: CARBON DIOXIDE 24 MMOL/L (21-32)
[2020-07-21 05:11] LABS: CREATININE SERUM 0.88 MG/DL (0.60-1.30); GFR ESTIMATED > 60
[2020-07-21 05:12] LABS: BUN/CREATININE RATIO 25
[2020-07-21 05:13] LABS: MAGNESIUM 1.8 MG/DL (1.6-2.4)
[2020-07-21] MEDS: inSUlin ASPART (NovoLOG) 1 UNIT/0.01 ML (CHARGE PER UNIT) SQ SCH ×4 (05:34→20:57)
[2020-07-21] MEDS: inSUlin ASPART (NovoLOG) 1 UNIT/0.01 ML (CHARGE PER UNIT) SC SCH ×3 (05:35→17:17)
[2020-07-21] MEDS: dexAMETHasone 6 MG TAB (DECADRON) PO SCH (06:04)
[2020-07-21] MEDS: ASPIRIN E.C. 81 MG (ECOTRIN) TAB PO SCH (08:02)
[2020-07-21] MEDS: SENNA W/DOCUSATE (SENOKOT S) TABLET PO SCH ×2 (08:02→21:03)
[2020-07-21] MEDS: cefTRIAXone FOR IV USE 1,000 MG in WATER (STERILE) FOR INJECTION 10 ML IV SCH (08:02)
[2020-07-21] MEDS: amLODIPine 5 MG (NORVASC) TAB PO SCH (08:02)
[2020-07-21] MEDS: APIXABAN 5 MG (ELIQUIS) TABLET PO SCH ×2 (08:02→20:57)
[2020-07-21] MEDS: PANTOPRAZOLE 40 MG (PROTONIX) TAB PO SCH (08:02)
[2020-07-21] MEDS: CARVEDILOL 6.25 MG (COREG) TAB PO SCH (08:02)
[2020-07-21] MEDS: lisINopril 40 MG (PRINIVIL) TABLET PO SCH (08:02)
--- NOTE | 2020-07-21 11:49 | Progress Note - Hospitalist ---
Subjective HPI/CC On Admission Date Seen by Provider: Jul 21, 2020 Time Seen by Provider: 11:00 CC: Ventricular tachycardia with COVID-19 PNA HPI: This is a 65yoWM clinic patient of Ata Adair in [facility] and Dr Charlie Wiley at [place] who presents to the [facility] ICU after transferred from [facility] due to V-tach on telemetry non-sustained and asymptomatic. Patient had been admitted to [facility] for the past 3 days for COVID-19 PNA with hypoxia along with bacterial PNA. Patient was requiring increased O2 supplement at 12L/min and placed on Vapotherm the morning of transfer but he was feeling better overall. V-tach noted on tely and Dr Maldonado recommended transferring over to [facility] since [place] was on diversion. Patient has new onset DM HGA1C was 10 on admit and placed on insulin due to Decadron administration. Patient is a poor historian and was the one who told me had had CABG hx and 6 stents in the past after I sp ecifically asked him if he had any heart issues and if he saw Cardiology in follow up. Subjective/Events-last exam Received CVP yesterday No issues today Wants to go home soon Still on Vapotherm BM treatment will be started NO pain reported Review of Systems General: Fatigue Pulmonary: Dyspnea Objective Exam Vital Signs Vital Signs Date Time Temp Pulse Resp B/P (MAP) Pulse Ox O2 Delivery O2 Flow Rate FiO2 07/21/20 18:34 97 Vapotherm 35.00 50 07/21/20 17:00 75 115/53 (73) 07/21/20 15:51 35.9 07/21/20 04:00 20 Capillary Refill : General Appearance: No Apparent Distress, WD/WN, Chronically ill Respiratory: Chest Non Tender, Lungs Clear, Normal Breath Sounds, No Accessory Muscle Use, No Respiratory Distress, Decreased Breath Sounds Cardiovascular: Regular Rate, Rhythm Neurologic/Psychiatric: Alert, Oriented x3, No Motor/Sensory Deficits, Normal Mood/Affect Results/Procedures Lab Laboratory Tests 07/21/20 04:37 Patient resulted labs reviewed. Assessment/Plan Assessment and Plan Assess & Plan/Chief Complaint Assessment: COVID-19 PNA on Vapotherm V-tach on Tely at [facility] transferred for Cardiology CAD previous stents and CABG HTN New onset DM insulin dependence now hga1c 10 Plan: Insulin Cardiology Abx O2 07/18/20: Insulin decrease Cardiology appreciated O2 07/19/20: Monitor in ICU Vtachy monitoring 07/20/20: Monitor closely CSD move Vapotherm 07/21/20: Move to [facility] s/p CVP DC Levemir due to hypoglycemia Diagnosis/Problems Diagnosis/Problems (1) COVID-19 (2) Ventricular tachycardia (3) CAD (coronary artery disease) (4) Hx of CABG (5) Diabetes mellitus, new onset (6) Obesity (7) Hypoxia (8) Hypertension Clinical Quality Measures DVT/VTE Risk/Contraindication: Risk Factor Score Per Nursin RFS Level Per Nursing on Admit: 4+=Very High NANDINI KELLEY DO Jul 21, 2020 11:49
[2020-07-21] MEDS ORDERED: BISACODYL 10 MG SUPP (DULCOLAX) PR PRN (12:00)
[2020-07-21] MEDS ORDERED: LACTULOSE SYRUP 10GM/15ML (ENULOSE) 30ML UDC PO ONE (12:00)
[2020-07-21] MEDS ORDERED: polyethylene glycoL POWDER 17 GM (MIRALAX) PACK PO ONE (12:00)
--- NOTE | 2020-07-21 15:52 | Progress Note - Cardiology ---
Cardiology SOAP Progress Note Subjective: No cp or palp or syncope Gen malaise Shortness of breath has improved No n/v Objective: I&O/Vital Signs 07/21/20 07/21/20 07/21/20 07/21/20 04:00 04:03 07:00 08:00 Temp 36.3 Pulse 59 65 75 Resp 20 B/P (MAP) 121/75 (90) 117/72 (87) Pulse Ox 96 93 O2 Delivery Vapotherm Vapotherm O2 Flow Rate 35.00 35.00 50.00 50.00 07/21/20 07/21/20 07/21/20 07/21/20 08:01 08:23 11:05 12:00 Temp 36.3 Pulse 72 B/P (MAP) 121/71 (88) Pulse Ox 94 95 92 O2 Delivery Vapotherm Vapotherm Vapotherm O2 Flow Rate 35.00 35.00 35.00 50.00 FiO2 50 50 07/21/20 07/21/20 12:22 15:05 Pulse 76 Pulse Ox 91 O2 Delivery Vapotherm O2 Flow Rate 35.00 FiO2 50 07/21/20 00:00 Intake Total 300 ml Output Total 750 ml Balance -450 ml Constitutional: AAO x 3, well-developed, well-nourished Respiratory: No accessory muscle use; other (fair to good, bilateral air entry) Cardiovascular: regular rate-rhythm, S1 and S2, systolic murmur (soft ANMOL at ca rd base) Gastrointestional: No tender, No guarding, No rebound; audible bowel sounds Extremities: No clubbing, No cyanosis, No significant edema Neurologic/Psychiatric: other (moves all limbs equally) Skin: No rash on exposed areas, No ulcerations on exposed areas Results/Procedures: Labs Laboratory Tests 07/20/20 17:26: Glucometer 266H 07/20/20 19:48: Glucometer 208H 07/21/20 04:37: White Blood Count 10.9, Red Blood Count 4.76, Hemoglobin 13.3, Hematocrit 40, Mean Corpuscular Volume 85, Mean Corpuscular Hemoglobin 28, Mean Corpuscular Hemoglobin Concent 33, Red Cell Distribution Width 12.1, Platelet Count 306, Mean Platelet Volume 10.8, Immature Granulocyte % (Auto) 4, Neutrophils (%) (Auto) 76H, Lymphocytes (%) (Auto) 15, Monocytes (%) (Auto) 5, Eosinophils (%) (Auto) 0, Basophils (%) (Auto) 0, Neutrophils # (Auto) 8.3H, Lymphocytes # (Auto) 1.6, Monocytes # (Auto) 0.6, Eosinophils # (Auto) 0.0, Basophils # (Auto) 0.0, Immature Granulocyte # (Auto) 0.4H, Sodium Level 133L, Potassium Level 4.3, Chloride Level 101, Carbon Dioxide Level 24, Anion Gap 8, Blood Urea Nitrogen 22H, Creatinine 0.88, Estimat Glomerular Filtration Rate > 60, BUN/Creatinine Ratio 25, Glucose Level 75, Calcium Level 8.2L, Phosphorus Level 4.0, Magnesium Level 1.8 07/21/20 11:02: Glucometer 270H Microbiology 07/17/20 MRSA Screen - Final, Complete MRSA not isolated Laboratory Tests 07/20/20 04:43 07/21/20 04:37 A/P: Assessment: COVID-19 pneumonia NSVT on 07/16/20 , asymptomatic, probably precipitated by COVID-19, no evidence of [place] Bradycardia on 07/18/10, amiodarone and beta-blockers d/c'd. resumed lower dose of bb on 07/19/20 No evidence of acute coronary syndrome CAD. - H/o CABG in 2001: HOUGH to LAD, SVG to OM1, SVG to OM2, SVG to diag, SVG to RCA, LVEF approx 45 - Cath [address] Guerra at [facility]: HOUGH to LAD patent, SVG to RCA patent, other grafts occluded; pt underwent stenting x 2 of the first OM of LCX Ischemic cardiomyopathy. Echo of 07/17/20 shows LVEF 40-45%, anteroseptal and inferoseptal akinesis, PASP 20-25 mmHg PAD: PCI to bilateral iliacs, L hypogastric, and L sup fem by Dr Guerra at [facility] Plan: I spoke with him and answered his questions today Increase beta-kanika if heart rate and bp tolerate Monitor labs Management of COVID-19 is by KERRI Holder MD [facility] Jul 21, 2020 15:52
[2020-07-21] MEDS: CARVEDILOL 12.5 MG (COREG) TABLET PO SCH (20:57)
[2020-07-21] MEDS: LACTULOSE SYRUP 10GM/15ML (ENULOSE) 30ML UDC PO SCH (20:57)
[2020-07-21] MEDS ORDERED: CARVEDILOL 6.25 MG (COREG) TAB PO SCH (21:00)
[2020-07-21] MEDS: SIMvastatin 20 MG (ZOCOR) TAB PO SCH (21:03)
[2020-07-21] MEDS: TERAZOSIN 5 MG (HYTRIN) CAPSULE PO SCH (21:03)
[2020-07-21] MEDS: polyethylene glycoL POWDER 17 GM (MIRALAX) PACK PO SCH (21:03)
[2020-07-22] MEDS: RT-ALBUTEROL INHALER HFA (VENTOLIN HFA) 18 GM IH SCH ×5 (02:14→23:23)
--- NOTE | 2020-07-22 04:02 | Pulmonary Progress Note ---
Subjective Time Seen by a Provider: 04:00 Subjective/Events-last exam No complications noted. Sepsis Event Evaluation Height, Weight, BMI Height: '" Weight: lbs. oz. kg; BMI Method: Exam Exam Vital Signs Date Time Temp Pulse Resp B/P (MAP) Pulse Ox O2 Delivery O2 Flow Rate FiO2 07/22/20 02:30 Nasal Cannula 3.00 07/22/20 02:14 96 Nasal Cannula 4.00 07/22/20 00:36 36.0 73 20 135/81 (99) 95 Nasal Cannula 4.00 07/21/20 23:18 95 Vapotherm 30.00 40 07/21/20 22:30 Nasal Cannula 5.00 07/21/20 20:00 94 Vapotherm 30.00 50 07/21/20 19:40 35.8 74 20 122/74 (90) 94 Vapotherm 35.00 40.00 07/21/20 19:00 74 07/21/20 18:34 97 Vapotherm 35.00 50 07/21/20 17:00 75 115/53 (73) 94 Vapotherm 35.00 50.00 07/21/20 16:00 68 126/76 (93) 92 Vapotherm 35.00 50.00 07/21/20 15:51 35.9 07/21/20 15:05 91 Vapotherm 35.00 50 07/21/20 12:22 76 07/21/20 12:00 72 121/71 (88) 92 Vapotherm 35.00 50.00 07/21/20 11:05 95 Vapotherm 35.00 50 07/21/20 08:23 94 Vapotherm 35.00 50 07/21/20 08:01 36.3 07/21/20 08:00 75 117/72 (87) 93 Vapotherm 35.00 50.00 07/21/20 07:00 65 07/21/20 04:03 36.3 07/21/20 04:00 59 20 121/75 (90) 96 Vapotherm 35.00 50.00 I & O 07/22/20 06:59 Intake Total 1525 ml Output Total 2400 ml Balance -875 ml Height & Weight Height: '" Weight: lbs. oz. kg; BMI Method: General Appearance: No Apparent Distress, WD/WN, Chronically ill HEENT: PERRL/EOMI, Normal ENT Inspection, Pharynx Normal Neck: Full Range of Motion, Normal Inspection, Non Tender, Supple, Carotid Bruit Respiratory: Chest Non Tender, Lungs Clear, Normal Breath Sounds, No Accessory Muscle Use, No Respiratory Distress, Decreased Breath Sounds Cardiovascular: Regular Rate, Rhythm Extremity: Normal Capillary Refill, Normal Inspection, Normal Range of Motion, Non Tender, No Calf Tenderness, No Pedal Edema Neurologic/Psychiatric: Alert, Oriented x3, No Motor/Sensory Deficits, Normal Mood/Affect Skin: Normal Color, Warm/Dry Lymphatic: No Adenopathy Results Lab Laboratory Tests 07/20/20 04:43 07/21/20 04:37 Assessment/Plan Assessment/Plan Acute respiratory failure secondary to COVID PNA -Currently requiring 3 liter NC -s/p Remdesivir -Decadron -S/p CVP -Labs reviewed -CXR pending PNA -Currently on ROcephin -Cultures pending -MRSA negative -Laps pending Hyponatremia -[place] [facility] [place]Cardiology following Bradycardia -Ammio gtt held secondary to bradycardia Hypotension -improved DVT/GI ppx -Eliquis per home med -AMBROSIO Lino DO Jul 22, 2020 04:02
[2020-07-22 04:10] LABS: BASOPHILS % (AUTO) 0 % (0-10); EOSINOPHILS % (AUTO) 0 % (0-10); HEMATOCRIT 43 % (40-54); HEMOGLOBIN 14.6 g/dL (13.3-17.7); LYMPHOCYTES # (AUTO) 0.9 10^3/uL (1.0-4.0); LYMPHOCYTES % (AUTO) 10 % (12-44); MEAN CORPUSCULAR HEMOGLOBIN 31 pg (25-34); MEAN CORPUSCULAR HGB CONC 34 g/dL (32-36); MEAN CORPUSCULAR VOLUME 90 fL (80-99); MEAN PLATELET VOLUME 10.2 fL (9.0-12.2); MONOCYTES # (AUTO) 0.6 10^3/uL (0.0-1.0); MONOCYTES % (AUTO) 7 % (0-12); NEUTROPHILS % (AUTO) 81 % (42-75); PLATELET COUNT 266 10^3/uL (130-400); WHITE BLOOD COUNT 8.6 10^3/uL (4.3-11.0)
[2020-07-22 04:34] LABS: ALBUMIN 3.6 GM/DL (3.2-4.5); CHLORIDE 103 MMOL/L (98-107); POTASSIUM 4.3 MMOL/L (3.6-5.0); SODIUM 136 MMOL/L (135-145)
[2020-07-22 04:35] LABS: CALCIUM 8.6 MG/DL (8.5-10.1)
[2020-07-22 04:36] LABS: GLUCOSE 114 MG/DL (70-105)
[2020-07-22 04:37] LABS: TOTAL PROTEIN 6.8 GM/DL (6.4-8.2)
[2020-07-22 04:38] LABS: BILIRUBIN,TOTAL 0.4 MG/DL (0.1-1.0); CARBON DIOXIDE 21 MMOL/L (21-32)
[2020-07-22 04:40] LABS: ALKALINE PHOSPHATASE 65 U/L (40-136); GFR ESTIMATED > 60
[2020-07-22 04:41] LABS: BUN/CREATININE RATIO 17
[2020-07-22 04:43] LABS: ALANINE AMINOTRANSFERASE 145 U/L (0-55)
[2020-07-22] MEDS: dexAMETHasone 6 MG TAB (DECADRON) PO SCH (06:23)
[2020-07-22] MEDS: inSUlin ASPART (NovoLOG) 1 UNIT/0.01 ML (CHARGE PER UNIT) SQ SCH (06:23)
[2020-07-22] MEDS ORDERED: WATER (STERILE) FOR INJECTION 10 ML ONE (07:56)
[2020-07-22] MEDS ORDERED: cefTRIAXone 1,000 MG IV (ROCEPHIN) VIAL ONE (07:56)
[2020-07-22] MEDS: amLODIPine 5 MG (NORVASC) TAB PO SCH (08:52)
[2020-07-22] MEDS: inSUlin ASPART (NovoLOG) 1 UNIT/0.01 ML (CHARGE PER UNIT) SC SCH ×3 (08:52→17:43)
[2020-07-22] MEDS: SENNA W/DOCUSATE (SENOKOT S) TABLET PO SCH ×2 (08:52→20:57)
[2020-07-22] MEDS: lisINopril 40 MG (PRINIVIL) TABLET PO SCH (08:52)
[2020-07-22] MEDS: APIXABAN 5 MG (ELIQUIS) TABLET PO SCH ×2 (08:52→20:57)
[2020-07-22] MEDS: PANTOPRAZOLE 40 MG (PROTONIX) TAB PO SCH (08:52)
[2020-07-22] MEDS: ASPIRIN E.C. 81 MG (ECOTRIN) TAB PO SCH (08:52)
[2020-07-22] MEDS: CARVEDILOL 12.5 MG (COREG) TABLET PO SCH ×2 (08:52→20:57)
[2020-07-22] MEDS: cefTRIAXone FOR IV USE 1,000 MG in WATER (STERILE) FOR INJECTION 10 ML IV SCH (08:53)
[2020-07-22] MEDS: LACTULOSE SYRUP 10GM/15ML (ENULOSE) 30ML UDC PO SCH ×2 (08:53→20:58)
--- NOTE | 2020-07-22 09:19 | Progress Note ---
Subjective Date Seen by a Provider: Jul 22, 2020 Time Seen by a Provider: 09:00 Subjective/Events-last exam Pt doing pretty well Labs good Blood sugars in the 200 range Increasing insulin Now on 6 liters of oxygen off Vapotherm Transferring to fourth floor Will initiate PT and OT orders and get him up and around Bowels not moving, giving laxatives and will give more today Review of Systems Pulmonary: Dyspnea, Cough Objective Exam Last Set of Vital Signs Vital Signs Date Time Temp Pulse Resp B/P (MAP) Pulse Ox O2 Delivery O2 Flow Rate FiO2 07/22/20 07:48 36.2 83 22 140/82 (101) 92 High Flow N/C 07/22/20 06:25 4.00 07/21/20 23:18 40 Capillary Refill : I&O Intake and Output 07/22/20 00:00 Intake Total 1675 ml Output Total 3075 ml Balance -1400 ml Intake Oral 1675 ml Output Urine Total 3075 ml General: Alert, Oriented X3, Cooperative, No Acute Distress Lungs: Clear to Auscultation, Normal Air Movement Heart: Regular Rate, Normal S1, Normal S2, No Murmurs Neuro: Normal Gait, Normal Speech, Strength at 5/5 X4 Ext, Normal Tone Psych/Mental Status: Mental Status NL, Mood NL Results Lab Laboratory Tests 07/21/20 11:02: Glucometer 270H 07/21/20 15:50: Glucometer 280H 07/21/20 19:39: Glucometer 268H 07/22/20 03:47: White Blood Count 8.6, Red Blood Count 4.77, Hemoglobin 14.6, Hematocrit 43, Mean Corpuscular Volume 90, Mean Corpuscular Hemoglobin 31, Mean Corpuscular Hemoglobin Concent 34, Red Cell Distribution Width 12.5, Platelet Count 266, Mean Platelet Volume 10.2, Immature Granulocyte % (Auto) 2, Neutrophils (%) (Auto) 81H, Lymphocytes (%) (Auto) 10L, Monocytes (%) (Auto) 7, Eosinophils (%) (Auto) 0, Basophils (%) (Auto) 0, Neutrophils # (Auto) 7.0, Lymphocytes # (Auto) 0.9L, Monocytes # (Auto) 0.6, Eosinophils # (Auto) 0.0, Basophils # (Auto) 0.0, Immature Granulocyte # (Auto) 0.1, Sodium Level 136, Potassium Level 4.3, Chloride Level 103, Carbon Dioxide Level 21, Anion Gap 12, Blood Urea Nitrogen 17, Creatinine 1.00, Estimat Glomerular Filtration Rate > 60, BUN/Creatinine Ratio 17, Glucose Level 114H, Calcium Level 8.6, Corrected Calcium 8.9, Total Bilirubin 0.4, Aspartate Amino Transf (AST/SGOT) 82H, Alanine Aminotransferase (ALT/SGPT) 145H, Alkaline Phosphatase 65, Total Protein 6.8, Albumin 3.6 Microbiology 07/17/20 MRSA Screen - Final, Complete MRSA not isolated Assessment/Plan Assessment/Plan Assess & Plan/Chief Complaint Assessment: COVID-19 PNA on Vapotherm V-tach on [place] [facility] [place] for Cardiology CAD previous stents and CABG HTN New onset DM insulin dependence now hga1c 10 Plan: Insulin Cardiology Abx O2 07/18/20: Insulin decrease Cardiology appreciated O2 07/19/20: Monitor in ICU Vtachy monitoring 07/20/20: Monitor closely CSD move Vapotherm 07/22/20: Move to 4th floor PT OT Monitor O2 Diagnosis/Problems Diagnosis/Problems (1) COVID-19 (2) Ventricular tachycardia (3) CAD (coronary artery disease) (4) Hx of CABG (5) Diabetes mellitus, new onset (6) Obesity (7) Hypoxia (8) Hypertension Clinical Quality Measures DVT/VTE Risk/Contraindication: Risk Factor Score Per Nursin RFS Level Per Nursing on Admit: 4+=Very High NANDINI KELLEY DO Jul 22, 2020 09:19
--- NOTE | 2020-07-22 09:29 | Progress Note - Cardiology ---
Cardiology SOAP Progress Note Subjective: Sitting up in bed. States he feels good. No c/o CP Feels SOB continues to improve Objective: I&O/Vital Signs 07/23/20 07/23/20 07/23/20 07/23/20 00:00 01:06 03:02 08:00 Temp 36.6 36.3 Pulse 62 60 54 Resp 18 18 B/P (MAP) 137/62 (87) 137/65 (89) Pulse Ox 96 95 94 O2 Delivery Vapotherm Vapotherm Vapotherm O2 Flow Rate 15.00 15.00 15.00 70.00 70.00 07/23/20 08:00 Temp 35.9 Pulse 57 Resp 18 B/P (MAP) 122/66 (84) Pulse Ox 94 O2 Delivery Vapotherm O2 Flow Rate 15.00 70.00 07/23/20 00:00 Intake Total 1100 ml Output Total 1250 ml Balance -150 ml Constitutional: AAO x 3, well-developed, well-nourished Respiratory: No accessory muscle use; other (fair to good, bilateral air entry) Cardiovascular: regular rate-rhythm, S1 and S2, systolic murmur (soft ANMOL at card base) Gastrointestional: No tender, No guarding, No rebound; audible bowel sounds Extremities: No clubbing, No cyanosis, No significant edema Neurologic/Psychiatric: other (moves all limbs equally) Skin: No rash on exposed areas, No ulcerations on exposed areas Results/Procedures: Labs Laboratory Tests 07/22/20 11:38: Glucometer 251H 07/22/20 15:37: Glucometer 219H 07/22/20 20:23: Glucometer 206H 07/23/20 05:27: White Blood Count 9.8, Red Blood Count 4.28L, Hemoglobin 12.2L, Hematocrit 36L, Mean Corpuscular Volume 85, Mean Corpuscular Hemoglobin 29, Mean Corpuscular Hemoglobin Concent 34, Red Cell Distribution Width 12.2, Platelet Count 287, Mean Platelet Volume 10.5, Immature Granulocyte % (Auto) 4, Neutrophils (%) (Auto) 71, Lymphocytes (%) (Auto) 20, Monocytes (%) (Auto) 6, Eosinophils (%) (Auto) 1, Basophils (%) (Auto) 0, Neutrophils # (Auto) 6.9, Lymphocytes # (Auto) 1.9, Monocytes # (Auto) 0.5, Eosinophils # (Auto) 0.1, Basophils # (Auto) 0.0, Immature Granulocyte # (Auto) 0.3H, D-Dimer 0.91H, Sodium Level 136, Potassium Level 4.4, Chloride Level 100, Carbon Dioxide Level 27, Anion Gap 9, Blood Urea Nitrogen 23H, Creatinine 1.07, Estimat Glomerular Filtration Rate > 60, BUN/Creatinine Ratio 21, Glucose Level 119H, Calcium Level 7.9L, Corrected Calcium 8.9, Total Bilirubin 0.4, Aspartate Amino Transf (AST/SGOT) 16, Alanine Aminotransferase (ALT/SGPT) 8, Alkaline Phosphatase 74, B-Type Natriuretic Peptide 20.0, Total Protein 5.2L, Albumin 2.7L, Procalcitonin 0.02 07/23/20 05:33: Glucometer 115H Microbiology 07/17/20 MRSA Screen - Final, Complete MRSA not isolated A/P: Assessment: COVID-19 pneumonia NSVT on 07/16/20 , asymptomatic, probably precipitated by COVID-19, no evidence of [place] Bradycardia on 07/18/10, amiodarone and beta-blockers d/c'd. resumed lower dose of bb on 07/19/20 No evidence of acute coronary syndrome CAD. - H/o CABG in 2001: HOUGH to LAD, SVG to OM1, SVG to OM2, SVG to diag, SVG to RCA, LVEF approx 45 - Cath [address] Guerra at [facility]: HOUGH to LAD patent, SVG to RCA patent, other grafts occluded; pt underwent stenting x 2 of the first OM of LCX Ischemic cardiomyopathy. Echo of 07/17/20 shows LVEF 40-45%, anteroseptal and inferoseptal akinesis, PASP 20-25 mmHg PAD: PCI to bilateral iliacs, L hypogastric, and L sup fem by Dr Guerra at [facility] Plan: I spoke with him and answered his questions today Continue current cardiac regimen Elevated liver enzymes of undetermined etiology - hold statin for now Monitor labs Management of COVID-19 is by LEAH Parks Jul 22, 2020 09:29
--- NOTE | 2020-07-22 10:23 | NUR ---
Spoke with the health dept and the patient. Patient must remain in isolation until August 02.
--- NOTE | 2020-07-22 17:25 | NUR ---
"RD ASSESSMENT PMHx: hypercholesterolemia; HTN; DM (new onset); PT INTERACTION: Note pt currently in COVID isolation per chart review. Note all diet information for nutrition assessment is per Fredy RN or per chart review. Fredy states current appetite appears good. Note avg PO intake 100% x2d, per chart review. Fredy states no issues with n/v/c/d that he is aware of, and that his last BM was 07/22. Note unable to determine recent wt hx, per chart review. Note pt has recent diagnosis of DM, per H&P. Est. kcal needs: 9660-4347 kcal | 20-25 kcal/kg Est. Pro needs: 79-99 g Pro | 0.8-1.0 g Pro/kg PES STATEMENT: Given current PO intake, no nutrition diagnosis at this time (NO-1.1). INTERVENTION: Continue with current diet order of 45g/m 3snack diet. Did not offer diet education on DM management d/t isolation precautions. Will continue to follow and reassess as pt needs, intake, and status change. Heidi BRITO, MS RD LD [phone] cell"
--- NOTE | 2020-07-22 17:57 | NUR ---
REPORT RECEIVED FROM OLVIN [facility] FROM CARDIAC STEPDOWN. THIS RN WILL ASSUME CARE OF THIS PATIENT WHEN HE ARRIVES TO THIS FLOOR.
--- NOTE | 2020-07-22 18:00 | Progress Note - Cardiology ---
Cardiology SOAP Progress Note Subjective: No new symptoms Objective: I&O/Vital Signs 07/22/20 07/22/20 07/22/20 07/22/20 06:25 06:54 07:48 08:00 Temp 36.2 Pulse 62 83 Resp 22 B/P (MAP) 140/82 (101) Pulse Ox 92 92 93 O2 Delivery Nasal Cannula High Flow N/C Nasal Cannula O2 Flow Rate 4.00 6.00 07/22/20 07/22/20 07/22/20 07/22/20 09:43 11:39 13:47 14:15 Temp 36.6 Pulse 58 62 Resp 19 B/P (MAP) 133/79 (97) Pulse Ox 93 96 96 O2 Delivery Vapotherm High Flow N/C Vapotherm O2 Flow Rate 15.00 15.00 FiO2 100 70 07/22/20 15:38 Temp 36.0 Pulse 66 Resp 17 B/P (MAP) 126/69 (88) Pulse Ox 95 O2 Delivery Vapotherm O2 Flow Rate 15.00 70.00 07/21/20 23:59 Intake Total 1225 ml Output Total 1700 ml Balance -475 ml Results/Procedures: Labs Laboratory Tests 07/21/20 19:39: Glucometer 268H 07/22/20 03:47: White Blood Count 8.6, Red Blood Count 4.77, Hemoglobin 14.6, Hematocrit 43, Mean Corpuscular Volume 90, Mean Corpuscular Hemoglobin 31, Mean Corpuscular Hemoglobin Concent 34, Red Cell Distribution Width 12.5, Platelet Count 266, Mean Platelet Volume 10.2, Immature Granulocyte % (Auto) 2, Neutrophils (%) (Auto) 81H, Lymphocytes (%) (Auto) 10L, Monocytes (%) (Auto) 7, Eosinophils (%) (Auto) 0, Basophils (%) (Auto) 0, Neutrophils # (Auto) 7.0, Lymphocytes # (Auto) 0.9L, Monocytes # (Auto) 0.6, Eosinophils # (Auto) 0.0, Basophils # (Auto) 0.0, Immature Granulocyte # (Auto) 0.1, Sodium Level 136, Potassium Level 4.3, Chloride Level 103, Carbon Dioxide Level 21, Anion Gap 12, Blood Urea Nitrogen 17, Creatinine 1.00, Estimat Glomerular Filtration Rate > 60, BUN/Creatinine Ratio 17, Glucose Level 114H, Calcium Level 8.6, Corrected Calcium 8.9, Total Bilirubin 0.4, Aspartate Amino Transf (AST/SGOT) 82H, Alanine Aminotransferase (ALT/SGPT) 145H, Alkaline Phosphatase 65, Total Protein 6.8, Albumin 3.6 07/22/20 11:38: Glucometer 251H 07/22/20 15:37: Glucometer 219H Microbiology 07/17/20 MRSA Screen - Final, Complete MRSA not isolated A/P: Assessment: COVID-19 pneumonia NSVT on 07/16/20 , asymptomatic, probably precipitated by COVID-19, no evidence of [place] Bradycardia on 07/18/10, amiodarone and beta-blockers d/c'd. resumed lower dose of bb on 07/19/20 No evidence of acute coronary syndrome CAD. - H/o CABG in 2001: HOUGH to LAD, SVG to OM1, SVG to OM2, SVG to diag, SVG to RCA, LVEF approx 45 - Cath [address] Guerra at [facility]: HOUGH to LAD patent, SVG to RCA patent, other grafts occluded; pt underwent stenting x 2 of the first OM of LCX Ischemic cardiomyopathy. Echo of 07/17/20 shows LVEF 40-45%, anteroseptal and inferoseptal akinesis, PASP 20-25 mmHg PAD: PCI to bilateral iliacs, L hypogastric, and L sup fem by Dr Guerra at [facility] Plan: Tolerating increased dose of bb Continue current cardiac regimen Elevated liver enzymes of undetermined etiology - hold statin for now Monitor labs Management of COVID-19 is by KERRI Holder MD FACP FAC CCDS Jul 22, 2020 18:00
--- NOTE | 2020-07-22 18:11 | NUR ---
PATIENT TO ROOM 432-1 AT THIS TIME ACCOMPANIED BY OLVIN C[facility] AND THE ICU, PCT. THIS RN WILL ASSUME CARE OF THIS PATIENT AT THIS TIME.
--- NOTE | 2020-07-22 19:00 | Physician Query Clarification ---
"Physician Query-General Query to Physician: History/Risk factors: DM, COVID 19 PNA Clinical Findings: 70% on 35% increased to 100%, SOA with minimal activity Treatment: High Flow 02 with FiO2 100%, Vapotherm, Ceftriaxone, Remdesivir, Decadron, Breathing RX, Question: Do you agree with the impression of Acute Respiratory Failure per Dr. Latrice Heredia? If you agree, please document in Progress Notes or Discharge Summary. 1. Yes; will document Acute Respiratory Failure Present On Admission in the Progress Notes 2. No; will continue to document Hypoxia in the Progress Notes 3. Other; will document explanation of clinical findings 4. Clinically undetermined; no explanation for clinical findings Please remember a lack of response to the above will prompt a phone page by CDI/coding staff. In responding to this query, please exercise your independent professional judgment. The purpose of this communication is to more accurately reflect the complexity of your patients condition. The fact that a question is asked does not imply that any particular answer is desired or expected. Thank you for timely response to this clarification. Gricelda Hu, MSN, RN RN Specialist-Clinical Doc Improvement CD -Health Info Mgmt Operations [address] [facility] t: [phone] | f: [phone] If you are unable to reach me at my extension, I may be working from home. Please contact me at [phone] PHYSICIAN RESPONSE: Based on the clinical findings in the record, please respond to the query above on this document as an addendum. Physician Response: Physician Response 1 If you have questions please contact: Director Of Career Resources: Ext: Thank you for your time and cooperation. Clinical Curator Of Photography And Prints/Director Of Career Resources This is a permanent part of the medical record GRICELDA HU Jul 22, 2020 19:00 NANDINI KELLEY DO Jul 22, 2020 21:13"
[2020-07-22] MEDS: TERAZOSIN 5 MG (HYTRIN) CAPSULE PO SCH (20:57)
[2020-07-22] MEDS: polyethylene glycoL POWDER 17 GM (MIRALAX) PACK PO SCH (20:58)
[2020-07-23] MEDS: RT-ALBUTEROL INHALER HFA (VENTOLIN HFA) 18 GM IH SCH ×6 (03:01→21:27)
[2020-07-23 05:49] LABS: BASOPHILS % (AUTO) 0 % (0-10); EOSINOPHILS # (AUTO) 0.1 10^3/uL (0.0-0.3); EOSINOPHILS % (AUTO) 1 % (0-10); HEMATOCRIT 36 % (40-54); HEMOGLOBIN 12.2 g/dL (13.3-17.7); LYMPHOCYTES # (AUTO) 1.9 10^3/uL (1.0-4.0); LYMPHOCYTES % (AUTO) 20 % (12-44); MEAN CORPUSCULAR HEMOGLOBIN 29 pg (25-34); MEAN CORPUSCULAR HGB CONC 34 g/dL (32-36); MEAN CORPUSCULAR VOLUME 85 fL (80-99); MEAN PLATELET VOLUME 10.5 fL (9.0-12.2); MONOCYTES # (AUTO) 0.5 10^3/uL (0.0-1.0); MONOCYTES % (AUTO) 6 % (0-12); NEUTROPHILS # (AUTO) 6.9 10^3/uL (1.8-7.8); NEUTROPHILS % (AUTO) 71 % (42-75); PLATELET COUNT 287 10^3/uL (130-400); WHITE BLOOD COUNT 9.8 10^3/uL (4.3-11.0)
[2020-07-23 06:06] LABS: ALBUMIN 2.7 GM/DL (3.2-4.5)
[2020-07-23 06:07] LABS: CHLORIDE 100 MMOL/L (98-107); POTASSIUM 4.4 MMOL/L (3.6-5.0); SODIUM 136 MMOL/L (135-145)
[2020-07-23 06:08] LABS: CALCIUM 7.9 MG/DL (8.5-10.1)
[2020-07-23 06:09] LABS: GLUCOSE 119 MG/DL (70-105); TOTAL PROTEIN 5.2 GM/DL (6.4-8.2)
[2020-07-23 06:10] LABS: CARBON DIOXIDE 27 MMOL/L (21-32)
[2020-07-23 06:11] LABS: BILIRUBIN,TOTAL 0.4 MG/DL (0.1-1.0)
[2020-07-23 06:12] LABS: ALKALINE PHOSPHATASE 74 U/L (40-136)
[2020-07-23 06:13] LABS: CREATININE SERUM 1.07 MG/DL (0.60-1.30); GFR ESTIMATED > 60
[2020-07-23 06:14] LABS: BUN/CREATININE RATIO 21
[2020-07-23 06:16] LABS: ALANINE AMINOTRANSFERASE 8 U/L (0-55)
[2020-07-23] MEDS: dexAMETHasone 6 MG TAB (DECADRON) PO SCH (06:28)
[2020-07-23] MEDS ORDERED: FUROSEMIDE 40 MG/4 ML INJ (LASIX) IVP NR (07:30)
--- NOTE | 2020-07-23 07:34 | Pulmonary Progress Note ---
Subjective Time Seen by a Provider: 07:32 Subjective/Events-last exam Pt is now requiring more oxygen. Sepsis Event Evaluation Height, Weight, BMI Height: '" Weight: lbs. oz. kg; BMI Method: Exam Exam Vital Signs Date Time Temp Pulse Resp B/P (MAP) Pulse Ox O2 Delivery O2 Flow Rate FiO2 07/23/20 03:02 36.3 54 18 137/65 (89) 95 Vapotherm 15.00 70.00 07/23/20 01:06 60 07/23/20 00:00 36.6 62 18 137/62 (87) 96 Vapotherm 15.00 70.00 07/22/20 20:50 Vapotherm 15.00 70 07/22/20 19:38 73 07/22/20 19:04 36.2 71 18 135/68 (90) 99 Vapotherm 15.00 70.00 07/22/20 18:16 36.2 71 18 135/68 (90) 99 Vapotherm 15.00 70.00 07/22/20 15:38 36.0 66 17 126/69 (88) 95 Vapotherm 15.00 70.00 07/22/20 14:15 96 Vapotherm 15.00 70 07/22/20 13:47 62 07/22/20 11:39 36.6 58 19 133/79 (97) 96 High Flow N/C 07/22/20 09:43 93 Vapotherm 15.00 100 07/22/20 08:00 93 Nasal Cannula 6.00 07/22/20 07:48 36.2 83 22 140/82 (101) 92 High Flow N/C I & O 07/23/20 07:00 Intake Total 1630 ml Output Total 2625 ml Balance -995 ml Height & Weight Height: '" Weight: lbs. oz. kg; BMI Method: General Appearance: No Apparent Distress, WD/WN, Chronically ill HEENT: PERRL/EOMI, Normal ENT Inspection, Pharynx Normal Neck: Full Range of Motion, Normal Inspection, Non Tender, Supple, Carotid Bruit Respiratory: Chest Non Tender, Lungs Clear, Normal Breath Sounds, No Accessory Muscle Use, No Respiratory Distress, Decreased Breath Sounds Cardiovascular: Regular Rate, Rhythm Extremity: Normal Capillary Refill, Normal Inspection, Normal Range of Motion, Non Tender, No Calf Tenderness, No Pedal Edema Neurologic/Psychiatric: Alert, Oriented x3, No Motor/Sensory Deficits, Normal Mood/Affect Skin: Normal Color, Warm/Dry Lymphatic: No Adenopathy Results Lab Laboratory Tests 07/22/20 03:47 07/23/20 05:27 Assessment/Plan Assessment/Plan Acute respiratory failure secondary to COVID PNA -Pt is now requiring more oxygen -Check BNP, CXR, PCT -s/p Remdesivir -Decadron -S/p CVP -Labs reviewed -CXR pending PNA -Currently on ROcephin -Cultures pending -MRSA negative -Laps pending Hyponatremia -Monitor Vtach episodes at [facility] [place] -Cardiology following Bradycardia -Ammio gtt held secondary to bradycardia Hypotension -improved DVT/GI ppx -Eliquis per home med -AMBROSIO Lino DO Jul 23, 2020 07:34
[2020-07-23] MEDS: inSUlin ASPART (NovoLOG) 1 UNIT/0.01 ML (CHARGE PER UNIT) SC SCH ×3 (08:08→16:38)
[2020-07-23] MEDS: PANTOPRAZOLE 40 MG (PROTONIX) TAB PO SCH (08:09)
[2020-07-23] MEDS: APIXABAN 5 MG (ELIQUIS) TABLET PO SCH ×2 (08:09→20:28)
[2020-07-23] MEDS: CARVEDILOL 12.5 MG (COREG) TABLET PO SCH ×2 (08:09→20:28)
[2020-07-23] MEDS: lisINopril 40 MG (PRINIVIL) TABLET PO SCH (08:09)
[2020-07-23] MEDS: SENNA W/DOCUSATE (SENOKOT S) TABLET PO SCH ×2 (08:09→20:28)
[2020-07-23] MEDS: ASPIRIN E.C. 81 MG (ECOTRIN) TAB PO SCH (08:09)
[2020-07-23] MEDS: amLODIPine 5 MG (NORVASC) TAB PO SCH (08:09)
[2020-07-23] MEDS: LACTULOSE SYRUP 10GM/15ML (ENULOSE) 30ML UDC PO SCH ×2 (08:09→20:28)
--- NOTE | 2020-07-23 08:58 | Progress Note ---
Subjective Date Seen by a Provider: Jul 23, 2020 Time Seen by a Provider: 09:30 Subjective/Events-last exam Pt doing a lot better but still remains on Vapotherm after weaned down to 6 liters of oxygen yesterday PT and OT will be ordered Labs remain stable Blood sugars reviewed Bowels are moving now after aggressive Laxative regimen Pt wants to go home Review of Systems General: Fatigue, Malaise Pulmonary: Dyspnea, Cough Objective Exam Last Set of Vital Signs Vital Signs Date Time Temp Pulse Resp B/P (MAP) Pulse Ox O2 Delivery O2 Flow Rate FiO2 07/23/20 03:02 36.3 54 18 137/65 (89) 95 Vapotherm 15.00 70.00 07/22/20 20:50 70 Capillary Refill : I&O Intake and Output 07/23/20 00:00 Intake Total 1700 ml Output Total 2400 ml Balance -700 ml Intake Oral 1700 ml Output Urine Total 2400 ml # Voids 1 # Bowel Movements 1 General: Alert, Oriented X3, Cooperative, No Acute Distress Lungs: Clear to Auscultation, Normal Air Movement Heart: Regular Rate, Normal S1, Normal S2, No Murmurs Neuro: Normal Gait, Normal Speech, Strength at 5/5 X4 Ext, Normal Tone Results Lab Laboratory Tests 07/22/20 11:38: Glucometer 251H 07/22/20 15:37: Glucometer 219H 07/22/20 20:23: Glucometer 206H 07/23/20 05:27: White Blood Count 9.8, Red Blood Count 4.28L, Hemoglobin 12.2L, Hematocrit 36L, Mean Corpuscular Volume 85, Mean Corpuscular Hemoglobin 29, Mean Corpuscular Hemoglobin Concent 34, Red Cell Distribution Width 12.2, Platelet Count 287, Mean Platelet Volume 10.5, Immature Granulocyte % (Auto) 4, Neutrophils (%) (Auto) 71, Lymphocytes (%) (Auto) 20, Monocytes (%) (Auto) 6, Eosinophils (%) (Auto) 1, Basophils (%) (Auto) 0, Neutrophils # (Auto) 6.9, Lymphocytes # (Auto) 1.9, Monocytes # (Auto) 0.5, Eosinophils # (Auto) 0.1, Basophils # (Auto) 0.0, Immature Granulocyte # (Auto) 0.3H, D-Dimer 0.91H, Sodium Level 136, Potassium Level 4.4, Chloride Level 100, Carbon Dioxide Level 27, Anion Gap 9, Blood Urea Nitrogen 23H, Creatinine 1.07, Estimat Glomerular Filtration Rate > 60, BUN/Creatinine Ratio 21, Glucose Level 119H, Calcium Level 7.9L, Corrected Calcium 8.9, Total Bilirubin 0.4, Aspartate Amino Transf (AST/SGOT) 16, Alanine Aminotransferase (ALT/SGPT) 8, Alkaline Phosphatase 74, B-Type Natriuretic Peptide 20.0, Total Protein 5.2L, Albumin 2.7L, Procalcitonin 0.02 07/23/20 05:33: Glucometer 115H Microbiology 07/17/20 MRSA Screen - Final, Complete MRSA not isolated Assessment/Plan Assessment/Plan Assess & Plan/Chief Complaint Assessment: COVID-19 PNA on Vapotherm V-tach on Tely at [facility] [facility] transferred for Cardiology CAD previous stents and CABG HTN New onset DM insulin dependence now hga1c 10 Plan: Insulin Cardiology Abx O2 07/18/20: Insulin decrease Cardiology appreciated O2 07/19/20: Monitor in ICU Vtachy monitoring 07/20/20: Monitor closely CSD move Vapotherm 07/22/20: Move to 4th floor PT OT Monitor O2 07/23/20: Back on Vapotherm Monitor closely Wean O2 PT OT Diagnosis/Problems Diagnosis/Problems (1) COVID-19 (2) Ventricular tachycardia (3) CAD (coronary artery disease) (4) Hx of CABG (5) Diabetes mellitus, new onset (6) Obesity (7) Hypoxia (8) Hypertension Clinical Quality Measures DVT/VTE Risk/Contraindication: Risk Factor Score Per Nursin RFS Level Per Nursing on Admit: 4+=Very High NANDINI KELLEY DO Jul 23, 2020 08:58
--- NOTE | 2020-07-23 09:08 | Diagnostic Imaging Report ---
Indication: Shortness of breath. Time of exam: 8:44 AM Correlation is made with prior chest 07/20/2020. Changes of median sternotomy and CABG are noted. Patchy airspace infiltrates in both mid and lower lung pal persist consistent with pneumonia. There is no effusion or pneumothorax. Impression: Stable bilateral airspace pulmonary infiltrates when compared with examination 3 days earlier. Dictated by: Dictated on workstation # [id number]
--- NOTE | 2020-07-23 10:40 | Progress Note - Cardiology ---
Cardiology SOAP Progress Note Subjective: Sitting up in bed States he feels his breathing is good, but does get SOB with exertion No c/o CP, palpitations, syncope or near syncope Objective: I&O/Vital Signs 07/23/20 07/23/20 07/23/20 07/23/20 19:57 20:20 21:27 23:47 Temp 35.7 36.8 Pulse 75 96 Resp 18 18 B/P (MAP) 132/73 (92) 125/60 (81) Pulse Ox 95 96 97 94 O2 Delivery Vapotherm Vapotherm Vapotherm Vapotherm O2 Flow Rate 20.00 20.00 20.00 20.00 50.00 40.00 FiO2 50 40 07/24/20 07/24/20 07/24/20 07/24/20 00:40 01:00 04:50 07:28 Temp 36.6 Pulse 70 96 Resp 18 B/P (MAP) 122/65 (84) Pulse Ox 96 96 97 O2 Delivery High Flow N/C High Flow N/C High Flow N/C O2 Flow Rate 4.00 4.00 3.00 07/23/20 23:59 Intake Total 1960 ml Output Total 2450 ml Balance -490 ml Constitutional: AAO x 3, well-developed, well-nourished Respiratory: No accessory muscle use, No respiratory distress; chest expansion is symmetric, chest is bilaterally symmetric, other (good air entry; diminished lower lobes) Cardiovascular: regular rate-rhythm; No JVD; S1 and S2 Gastrointestional: No tender; soft, round, audible bowel sounds Extremities: no lower extremity edema bilateral Neurologic/Psychiatric: grossly intact (moves all extremities) Skin: No rash on exposed areas, No ulcerations on exposed areas Results/Procedures: Labs Laboratory Tests 07/23/20 11:23: Glucometer 187H 07/23/20 15:48: Glucometer 285H 07/23/20 19:56: Glucometer 308H 07/24/20 05:08: Glucometer 99 07/24/20 05:34: White Blood Count 11.1H, Red Blood Count 4.60, Hemoglobin 13.1L, Hematocrit 39L, Mean Corpuscular Volume 85, Mean Corpuscular Hemoglobin 29, Mean Corpuscular Hemoglobin Concent 34, Red Cell Distribution Width 12.0, Platelet Count 267, Mean Platelet Volume 10.5, Immature Granulocyte % (Auto) 2, Neutrophils (%) (Auto) 73, Lymphocytes (%) (Auto) 18, Monocytes (%) (Auto) 6, Eosinophils (%) (Auto) 1, Basophils (%) (Auto) 0, Neutrophils # (Auto) 8.1H, Lymphocytes # (Auto) 2.0, Monocytes # (Auto) 0.6, Eosinophils # (Auto) 0.1, Basophils # (Auto) 0.0, Immature Granulocyte # (Auto) 0.3H, Sodium Level 135, Potassium Level 4.1, Chloride Level 99, Carbon Dioxide Level 29, Anion Gap 7, Blood Urea Nitrogen 24H , Creatinine 1.20, Estimat Glomerular Filtration Rate > 60, BUN/Creatinine Ratio 20, Glucose Level 110H, Calcium Level 8.2L, Corrected Calcium 9.1, Total Bilirubin 0.4, Aspartate Amino Transf (AST/SGOT) 17, Alanine Aminotransferase (ALT/SGPT) 9, Alkaline Phosphatase 82, Total Protein 5.6L, Albumin 2.9L Microbiology 07/17/20 MRSA Screen - Final, Complete MRSA not isolated Procedures NAME: CARL TRIVEDI [facility] REC#: [id number] PT STATUS: ADM IN : 1955 PHYSICIAN: AMBROSIO GUEVARA DO ADMIT DATE: 07/17/20 Draft Date of Exam:07/23/20 CHEST 1 VIEW, AP/PA ONLY Indication: Shortness of breath. Time of exam: 8:44 AM Correlation is made with prior chest 07/20/2020. Changes of median sternotomy and CABG are noted. Patchy airspace infiltrates in both mid and lower lung pal persist consistent with pneumonia. There is no effusion or pneumothorax. Impression: Stable bilateral airspace pulmonary infiltrates when compared with examination 3 days earlier. Dictated on workstation # [id number] Dict: 07/23/20905 Trans: 07/23/20906 CV [id number] Interpreted by: SONAL SANCHEZ MD , asymptomatic, probably precipitated by COVID-19, no evidence of [place] Bradycardia on 07/18/10, amiodarone and beta-blockers d/c'd. resumed lower dose of bb on 07/19/20 No evidence of acute coronary syndrome CAD. - H/o CABG in 2001: HOUGH to LAD, SVG to OM1, SVG to OM2, SVG to diag, SVG to RCA, LVEF approx 45 - Cath [address]erra at [facility]: HOUGH to LAD patent, SVG to RCA patent, other grafts occluded; pt underwent stenting x 2 of the first OM of LCX Ischemic cardiomyopathy. Echo of 07/17/20 shows LVEF 40-45%, anteroseptal and inferoseptal akinesis, PASP 20-25 mmHg PAD: PCI to bilateral iliacs, L hypogastric, and L sup fem by Dr Guerra at [facility] Plan: Tolerating increased dose of bb Continue current cardiac regimen Elevated liver enzymes of undetermined etiology - hold statin for now Encouraged use of IS Monitor labs Management of COVID-19 is by LEAH Parks Jul 23, 2020 10:40
--- NOTE | 2020-07-23 11:35 | Physical Therapy Evaluation ---
PT Evaluation-General Medical Diagnosis Admission Date Jul 17, 2020 at 11:07 Medical Diagnosis: Covid (+) Onset Date: Jul 17, 2020 Therapy Diagnosis Therapy Diagnosis: debility Precautions Precautions/Isolations: Airborne Isolation, Contact Isolation, Droplet Isolation Referral Physician: Fidelia Reason for Referral: Evaluation/Treatment Medical History Pertinent Medical History: CABG, CAD, DM, HTN Current History transferred from [facility] [place] secondary to V-Tach Reviewed History: Yes Social History Home: Single Level Current Living Status: Spouse Prior Prior Level of Function SCALE: Activities may be completed with or without assistive devices. 1-Yutjxuwfxk-tefapvn completes the activity by him/herself with no assistance from a helper. 5-Set-up or Clean-up Assistance-helper sets up or cleans up; patient completes activity. [place] assists only prior to or following the activity. 4-Supervision or Touching Assistance-helper provides verbal cues and/or touching/steadying and/or contact guard assistance as patient completes activity. Assistance may be provided throughout the activity or intermittently. 3-Partial/Moderate Assistance-helper does LESS THAN HALF the effort. [place] lifts, holds or supports trunk or limbs, but provides less than half the effort. 2-Substantial/Maximal Assistance-helper does MORE THAN HALF the effort. [place] lifts or holds trunk or limbs and provides more than half the effort. 4-Lgyizgbmd-ceapbv does ALL the effort. Patient does none of the effort to complete the activity. Or, the assistance of 2 or more helpers is required for the patient to complete the activity. If activity was not attempted, code reason: 7-Patient Refused. 9-Not Applicable-not attempted and the patient did not perform the activity before the current illness, exacerbation or injury. 10-Not Attempted due to Environmental Limitations-(lack of equipment, weather restraints, etc.). 88-Not Attempted due to Medical Conditions or Safety Concerns. Bed Mobility: 6 Transfers (B,C,W/C): 6 Gait: 6 Stairs: 6 Indoor Mobility (Ambulation): Independent Stairs: Independent Prior Devices Use: None works PT Evaluation-Current Subjective Patient agrees to PT. Just complete with OT. Objective Patient Orientation: Normal For Age Attachments: Oxygen (vapotherm) ROM/Strength ROM Lower Extremities bilateral LE WFL Strength Lower Extremities 5/5 grossly bilateral LE Integumentary/Posture Integumentary refer to nursing notes Bowel Incontinence: No Bladder Incontinence: No Posture WFL Neuromuscular (Tone, Coordination, Reflexes) grossly intact with all Sensory Vision: Functional Hearing: Functional Sensation Right Lower Extremit: Intact Sensation Left Lower Extremity: Intact Transfers Roll Left to Right (QC): 6 Sit to Lying (QC): 6 Lying to Sitting/Side of Bed(Q: 6 Sit to Stand (QC): 6 Chair/Itv-tf-Rfidw Xfer(QC): 6 Gait Does the Patient Walk?: Yes Mode of Locomotion: Walk Anticipated Mode of Locomotion: Walk Walk 10 feet (QC): 6 Walk 50 ft with 2 Turns(QC): 6 Walk 150 ft (QC): 6 Distance: >150' pacing 20' back and forth Gait Assistive Device: None Comments/Gait Description safe and functional with no deviation Balance Sitting Static: Normal Sitting Dynamic: Normal Standing Static: Normal Standing Dynamic: Normal Assessment/Needs 65 y.o. male, is currently at independent [facility] with all gross motor skills and does not require skilled therapy intervention. Rehab Potential: Fair PT Plan Treatment/Plan Treatment Plan: Discontinue PT, goals met Treatment Duration: Jul 23, 2020 Frequency: 1 time per week Estimated Hrs Per Day: .25 hour per day Patient and/or Family Agrees t: Yes Discharge Recommendations Therapy Discharge Recommendati: Home & Family Time/GCodes Time In: 1046 Time Out: 1100 Total Billed Treatment Time: 14 Total Billed Treatment 1 visit EVLowC 14 min JOHN SHERIDAN PT Jul 23, 2020 11:35
--- NOTE | 2020-07-23 13:15 | Occupational Therapy Eval ---
OT Evaluation-General/PLF Medical Diagnosis Admission Date Jul 17, 2020 at 11:07 Medical Diagnosis: Covid (+)/ventricular tachycardia Onset Date: Jul 17, 2020 Therapy Diagnosis Therapy Diagnosis: Decreased ADl skills Precautions Precautions/Isolations: Airborne Isolation, Contact Isolation, Droplet Isolation Weight Bear Status Weight Bearing Restriction: Weight Bearing/Tolerated Referral Physician: Fidelia Jonas Reason: Activity Tolerance, Self Care, Evaluation/Treatment, Strengthening/ROM Medical History Pertinent Medical History: CABG, CAD, DM, HTN Additional Medical History 6 stents Current History Pt. currently with pneumonia. Pt. on Vapotherm but states that he is feeling better. Reviewed History: Yes Social History Home: Single Level Current Living Status: Spouse Entry Into Home: Stairs With Railing Steps Into Home: 2 ADL-Prior Level of Function SCALE: Activities may be completed with or without assistive devices. 3-Aghgikcvuf-khtggcq completes the activity by him/herself with no assistance from a helper. 5-Set-up or Clean-up Assistance-helper sets up or cleans up; patient completes activity. [place] assists only prior to or following the activity. 4-Supervision or Touching Assistance-helper provides verbal cues and/or touching/steadying and/or contact guard assistance as patient completes activity. Assistance may be provided throughout the activity or intermittently. 3-Partial/Moderate Assistance-helper does LESS THAN HALF the effort. [place] lifts, holds or supports trunk or limbs, but provides less than half the effort. 2-Substantial/Maximal Assistance-helper does MORE THAN HALF the effort. [place] lifts or holds trunk or limbs and provides more than half the effort. 2-Xyjsbgjfy-duvwqw does ALL the effort. Patient does none of the effort to complete the activity. Or, the assistance of 2 or more helpers is required for the patient to complete the activity. If activity was not attempted, code reason: 7-Patient Refused. 9-Not Applicable-not attempted and the patient did not perform the activity before the current illness, exacerbation or injury. 10-Not Attempted due to Environmental Limitations-(lack of equipment, weather restraints, etc.). 88-Not Attempted due to Medical Conditions or Safety Concerns. ADL PLOF Comments Pt. is typically independent with daily tasks. 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 Pt. reports that he does not use an assistive device. Self Care: Independent Functional Cognition: Independent DME/Equipment: Shower Occupation: Pt. works and states that he is active at his job. Drive Self: Yes OT Current Status Subjective No pain reported. Pt. eager to ambulate. Appearance Pt. in bed. Alert and oriented. Agrees to work with OT. Mental Status/Objective Patient Orientation: Person, Place, Time, Situation Attachments: Oxygen Current Hand Dominance: Right Upper Extremity ROM WFL Upper Extremity Strength intact ADL-Treatment Eating (QC): 6 Shower/Bathe Self (QC): 5 (Set up to complete sponge bath sitting on side of bed. Pt. unable to shower due to Vapotherm.) On/Off Footwear (QC): 6 Toileting Hygiene (QC): 6 (Pt. has been ambulating self to bathroom without assistive device. He reports that he had a BM this morning, and had no difficulty cleansing self after.) Other Treatments Pt. agrees to treatment. Transferred supine-sit with independence. Pt. completed sponge bath seated on side of bed. Stood and marched in place after this, approximately 5 minutes without rest break. Oxygen monitored throughout and did dip to 89% at 5 minutes. Pt. encouraged to stop and take deep breaths. Oxygen came up to 93%. PT came in at this point to work with pt. No LOB noted. Education OT Patient Education: Correct positioning, Modified ADL techniques, Progress toward Goal/Update tx plan, Purpose of tx/functional activities, Reviewed precautions, Rehab process, Transfer techniques Teaching Recipient: Patient Teaching Methods: Demonstration, Discussion Response to Teaching: Verbalize Understanding, Return Demonstration OT Group Home Goals Group Home Goals Time Frame: Jul 23, 2020 Additional Goals: 1-Demonstrate ADL Tasks, 2-Verbalize Understanding 1=Demonstrate adherence to instructed precautions during ADL tasks. 2=Patient will verbalize/demonstrate understanding of assistive devices/lesvia fications for ADL. 3=Patient will improve strength/tolerance for activity to enable patient to perform ADL's. Pt. has demonstrated ability to perform ADL skills with no LOB or safety issues. No assistive devices needed or adaptive equipment. No further occupational therapy services warranted at this time. OT Education/Plan Problem List/Assessment Assessment: No Skilled OT Needs ID'd Discharge Recommendations Plan/Recommendations: Discharge/Goals Met Therapy Discharge Recommendati: Home & Family Treatment Plan/Plan of Care Treatment,Training & Education: Yes Plan of Care: OTHER (Discharge pt. from OT services.) Treatment Duration: Jul 23, 2020 Frequency: 1 time per week Estimated Hrs Per Day: .5 hour per day Agreement: Yes Rehab Potential: Good Time/GCodes Start Time: 10:20 Stop Time: 10:50 Total Time Billed (hr/min): 30 Billed Treatment Time 1, EVL x 15minutes, ADL x 15minutes NEETA ALEXANDER OT Jul 23, 2020 13:15
[2020-07-23] MEDS: TERAZOSIN 5 MG (HYTRIN) CAPSULE PO SCH (20:28)
[2020-07-23] MEDS: polyethylene glycoL POWDER 17 GM (MIRALAX) PACK PO SCH (20:28)
[2020-07-24] MEDS: RT-ALBUTEROL INHALER HFA (VENTOLIN HFA) 18 GM IH SCH ×6 (00:39→22:55)
[2020-07-24] MEDS: dexAMETHasone 6 MG TAB (DECADRON) PO SCH (05:29)
[2020-07-24 05:56] LABS: BASOPHILS % (AUTO) 0 % (0-10); EOSINOPHILS # (AUTO) 0.1 10^3/uL (0.0-0.3); EOSINOPHILS % (AUTO) 1 % (0-10); HEMATOCRIT 39 % (40-54); HEMOGLOBIN 13.1 g/dL (13.3-17.7); LYMPHOCYTES % (AUTO) 18 % (12-44); MEAN CORPUSCULAR HEMOGLOBIN 29 pg (25-34); MEAN CORPUSCULAR HGB CONC 34 g/dL (32-36); MEAN CORPUSCULAR VOLUME 85 fL (80-99); MEAN PLATELET VOLUME 10.5 fL (9.0-12.2); MONOCYTES # (AUTO) 0.6 10^3/uL (0.0-1.0); MONOCYTES % (AUTO) 6 % (0-12); NEUTROPHILS # (AUTO) 8.1 10^3/uL (1.8-7.8); NEUTROPHILS % (AUTO) 73 % (42-75); PLATELET COUNT 267 10^3/uL (130-400); WHITE BLOOD COUNT 11.1 10^3/uL (4.3-11.0)
[2020-07-24 06:01] LABS: ALBUMIN 2.9 GM/DL (3.2-4.5)
[2020-07-24 06:02] LABS: CHLORIDE 99 MMOL/L (98-107); POTASSIUM 4.1 MMOL/L (3.6-5.0); SODIUM 135 MMOL/L (135-145)
[2020-07-24 06:03] LABS: CALCIUM 8.2 MG/DL (8.5-10.1)
[2020-07-24 06:04] LABS: GLUCOSE 110 MG/DL (70-105); TOTAL PROTEIN 5.6 GM/DL (6.4-8.2)
[2020-07-24 06:05] LABS: CARBON DIOXIDE 29 MMOL/L (21-32)
[2020-07-24 06:06] LABS: BILIRUBIN,TOTAL 0.4 MG/DL (0.1-1.0)
[2020-07-24 06:07] LABS: ALKALINE PHOSPHATASE 82 U/L (40-136)
[2020-07-24 06:08] LABS: GFR ESTIMATED > 60
[2020-07-24 06:09] LABS: BUN/CREATININE RATIO 20
[2020-07-24 06:10] LABS: ALANINE AMINOTRANSFERASE 9 U/L (0-55)
[2020-07-24] MEDS: inSUlin ASPART (NovoLOG) 1 UNIT/0.01 ML (CHARGE PER UNIT) SC SCH ×3 (07:26→17:25)
[2020-07-24] MEDS: SENNA W/DOCUSATE (SENOKOT S) TABLET PO SCH ×2 (09:00→20:30)
[2020-07-24] MEDS: LACTULOSE SYRUP 10GM/15ML (ENULOSE) 30ML UDC PO SCH ×2 (09:00→20:30)
[2020-07-24] MEDS: PANTOPRAZOLE 40 MG (PROTONIX) TAB PO SCH (09:38)
[2020-07-24] MEDS: CARVEDILOL 12.5 MG (COREG) TABLET PO SCH ×2 (09:38→20:29)
[2020-07-24] MEDS: ASPIRIN E.C. 81 MG (ECOTRIN) TAB PO SCH (09:39)
[2020-07-24] MEDS: lisINopril 40 MG (PRINIVIL) TABLET PO SCH (09:39)
[2020-07-24] MEDS: amLODIPine 5 MG (NORVASC) TAB PO SCH (09:39)
[2020-07-24] MEDS: APIXABAN 5 MG (ELIQUIS) TABLET PO SCH ×2 (09:39→20:29)
--- NOTE | 2020-07-24 10:15 | Progress Note - Cardiology ---
Cardiology SOAP Progress Note Subjective: Sitting up in bed States he feels good today No c/o CP or palpitations Feels SOB is improved from yesterday Objective: I&O/Vital Signs 07/24/20 07/24/20 07/24/20 07/24/20 04:50 07:02 07:28 08:00 Temp 36.6 36.2 Pulse 96 57 58 Resp 18 16 B/P (MAP) 122/65 (84) 127/68 (87) Pulse Ox 96 97 93 O2 Delivery High Flow N/C High Flow N/C High Flow N/C O2 Flow Rate 4.00 3.00 4.00 07/24/20 07/24/20 07/24/20 07/24/20 09:00 10:30 11:30 12:52 Temp 35.4 Pulse 66 55 Resp 18 B/P (MAP) 118/59 (78) Pulse Ox 93 93 92 O2 Delivery Nasal Cannula Nasal Cannula High Flow N/C O2 Flow Rate 3.00 1.00 4.00 07/24/20 14:36 Pulse Ox 96 O2 Delivery Nasal Cannula O2 Flow Rate 2.00 07/24/20 00:00 Intake Total 1960 ml Output Total 2450 ml Balance -490 ml Constitutional: AAO x 3, well-developed, well-nourished Respiratory: No accessory muscle use, No respiratory distress; chest expansion is symmetric, chest is bilaterally symmetric, other (good air entry; diminished lower lobes) Cardiovascular: regular rate-rhythm; No JVD; S1 and S2 Gastrointestional: No tender; soft, round, audible bowel sounds Extremities: no lower extremity edema bilateral Neurologic/Psychiatric: grossly intact (moves all extremities) Skin: No rash on exposed areas, No ulcerations on exposed areas Results/Procedures: Labs Laboratory Tests 07/23/20 15:48: Glucometer 285H 07/23/20 19:56: Glucometer 308H 07/24/20 05:08: Glucometer 99 07/24/20 05:34: White Blood Count 11.1H, Red Blood Count 4.60, Hemoglobin 13.1L, Hematocrit 39L, Mean Corpuscular Volume 85, Mean Corpuscular Hemoglobin 29, Mean Corpuscular Hemoglobin Concent 34, Red Cell Distribution Width 12.0, Platelet Count 267, Mean Platelet Volume 10.5, Immature Granulocyte % (Auto) 2, Neutrophils (%) (Auto) 73, Lymphocytes (%) (Auto) 18, Monocytes (%) (Auto) 6, Eosinophils (%) (Auto) 1, Basophils (%) (Auto) 0, Neutrophils # (Auto) 8.1H, Lymphocytes # (Auto) 2.0, Monocytes # (Auto) 0.6, Eosinophils # (Auto) 0.1, Basophils # (Auto) 0.0, Immature Granulocyte # (Auto) 0.3H, Sodium Level 135, Potassium Level 4.1, Chloride Level 99, Carbon Dioxide Level 29, Anion Gap 7, Blood Urea Nitrogen 24H , Creatinine 1.20, Estimat Glomerular Filtration Rate > 60, BUN/Creatinine Ratio 20, Glucose Level 110H, Calcium Level 8.2L, Corrected Calcium 9.1, Total Bilir ubin 0.4, Aspartate Amino Transf (AST/SGOT) 17, Alanine Aminotransferase (ALT/SGPT) 9, Alkaline Phosphatase 82, Total Protein 5.6L, Albumin 2.9L 07/24/20 11:20: Glucometer 135H Microbiology 07/17/20 MRSA Screen - Final, Complete MRSA not isolated A/P: Assessment: COVID-19 pneumonia NSVT on 07/16/20 , asymptomatic, probably precipitated by COVID-19, no evidence of [place], no recurrence of wide-complex tachycardia Bradycardia on 07/18/10, amiodarone and beta-blockers d/c'd. resumed lower dose of bb on 07/19/20 No evidence of acute coronary syndrome CAD. - H/o CABG in 2001: HOUGH to LAD, SVG to OM1, SVG to OM2, SVG to diag, SVG to RCA, LVEF approx 45 - Cath [address] Guerra at [facility]: HOUGH to LAD patent, SVG to RCA patent, other grafts occluded; pt underwent stenting x 2 of the first OM of LCX Ischemic cardiomyopathy. Echo of 07/17/20 shows LVEF 40-45%, anteroseptal and inferoseptal akinesis, PASP 20-25 mmHg PAD: PCI to bilateral iliacs, L hypogastric, and L sup fem by Dr Guerra at [facility] Plan: Continue current cardiac regimen Monitor labs Liver enzymes have returned to normal - restart low dose statin and monitor Management of COVID-19 is by LEAH Parks [facility] Jul 24, 2020 10:15 KERRI SPENCER MD FACP FAC CCDS Jul 24, 2020 15:44
--- NOTE | 2020-07-24 11:16 | Progress Note ---
Subjective Date Seen by a Provider: Jul 24, 2020 Time Seen by a Provider: 10:00 Subjective/Events-last exam Pt off Vapotherm 3 Liters of O2 maintained Denies any significant new issues Update cardiology and pt on likelihood of DC tomorrow on home O2 Review of Systems General: Fatigue, Malaise Objective Exam Last Set of Vital Signs Vital Signs Date Time Temp Pulse Resp B/P (MAP) Pulse Ox O2 Delivery O2 Flow Rate FiO2 07/24/20 10:30 93 Nasal Cannula 1.00 07/24/20 08:00 36.2 58 16 127/68 (87) 07/23/20 21:27 40 Capillary Refill : I&O Intake and Output 07/24/20 00:00 Intake Total 2140 ml Output Total 3175 ml Balance -1035 ml Intake Oral 2140 ml Output Urine Total 3175 ml # Bowel Movements 1 General: Alert, Oriented X3, Cooperative, No Acute Distress Lungs: Clear to Auscultation, Normal Air Movement Heart: Regular Rate, Normal S1, Normal S2, No Murmurs Neuro: Normal Gait, Normal Speech, Strength at 5/5 X4 Ext, Normal Tone Results Lab Laboratory Tests 07/23/20 11:23: Glucometer 187H 07/23/20 15:48: Glucometer 285H 07/23/20 19:56: Glucometer 308H 07/24/20 05:08: Glucometer 99 07/24/20 05:34: White Blood Count 11.1H, Red Blood Count 4.60, Hemoglobin 13.1L, Hematocrit 39L, Mean Corpuscular Volume 85, Mean Corpuscular Hemoglobin 29, Mean Corpuscular Hemoglobin Concent 34, Red Cell Distribution Width 12.0, Platelet Count 267, Mean Platelet Volume 10.5, Immature Granulocyte % (Auto) 2, Neutrophils (%) (Auto) 73, Lymphocytes (%) (Auto) 18, Monocytes (%) (Auto) 6, Eosinophils (%) (Auto) 1, Basophils (%) (Auto) 0, Neutrophils # (Auto) 8.1H, Lymphocytes # (Auto) 2.0, Monocytes # (Auto) 0.6, Eosinophils # (Auto) 0.1, Basophils # (Auto) 0.0, Immature Granulocyte # (Auto) 0.3H, Sodium Level 135, Potassium Level 4.1, Chloride Level 99, Carbon Dioxide Level 29, Anion Gap 7, Blood Urea Nitrogen 24H , Creatinine 1.20, Estimat Glomerular Filtration Rate > 60, BUN/Creatinine Ratio 20, Glucose Level 110H, Calcium Level 8.2L, Corrected Calcium 9.1, Total Bilirubin 0.4, Aspartate Amino Transf (AST/SGOT) 17, Alanine Aminotransferase (ALT/SGPT) 9, Alkaline Phosphatase 82, Total Protein 5.6L, Albumin 2.9L Microbiology 07/17/20 MRSA Screen - Final, Complete MRSA not isolated Assessment/Plan Assessment/Plan Assess & Plan/Chief Complaint Assessment: COVID-19 [place] [facility] [place] CAD previous stents and CABG HTN New onset DM insulin dependence now hga1c 10 Plan: Insulin Cardiology Abx O2 07/18/20: Insulin decrease Cardiology appreciated O2 07/19/20: Monitor in ICU Vtachy monitoring 07/20/20: Monitor closely CSD move Vapotherm 07/22/20: Move to 4th floor PT OT Monitor O2 07/23/20: Back on Vapotherm Monitor closely Wean O2 PT OT 07/24/20: Keep off Vapotherm NC O2 only Home O2 evalu tomorrow Diagnosis/Problems Diagnosis/Problems (1) COVID-19 (2) Ventricular tachycardia (3) CAD (coronary artery disease) (4) Hx of CABG (5) Diabetes mellitus, new onset (6) Obesity (7) Hypoxia (8) Hypertension Clinical Quality Measures DVT/VTE Risk/Contraindication: Risk Factor Score Per Nursin RFS Level Per Nursing on Admit: 4+=Very High NANDINI KELLEY DO Jul 24, 2020 11:16
[2020-07-24] MEDS: TERAZOSIN 5 MG (HYTRIN) CAPSULE PO SCH (20:29)
[2020-07-24] MEDS: polyethylene glycoL POWDER 17 GM (MIRALAX) PACK PO SCH (20:30)
[2020-07-25] MEDS: RT-ALBUTEROL INHALER HFA (VENTOLIN HFA) 18 GM IH SCH ×3 (02:16→10:34)
[2020-07-25] MEDS: dexAMETHasone 6 MG TAB (DECADRON) PO SCH (05:27)
[2020-07-25 06:01] LABS: BASOPHILS % (AUTO) 0 % (0-10); EOSINOPHILS % (AUTO) 0 % (0-10); HEMATOCRIT 39 % (40-54); HEMOGLOBIN 12.9 g/dL (13.3-17.7); LYMPHOCYTES # (AUTO) 1.7 10^3/uL (1.0-4.0); LYMPHOCYTES % (AUTO) 19 % (12-44); MEAN CORPUSCULAR HEMOGLOBIN 28 pg (25-34); MEAN CORPUSCULAR HGB CONC 33 g/dL (32-36); MEAN CORPUSCULAR VOLUME 86 fL (80-99); MEAN PLATELET VOLUME 10.6 fL (9.0-12.2); MONOCYTES # (AUTO) 0.5 10^3/uL (0.0-1.0); MONOCYTES % (AUTO) 5 % (0-12); NEUTROPHILS # (AUTO) 6.7 10^3/uL (1.8-7.8); NEUTROPHILS % (AUTO) 74 % (42-75); PLATELET COUNT 267 10^3/uL (130-400); WHITE BLOOD COUNT 9.2 10^3/uL (4.3-11.0)
[2020-07-25 06:09] LABS: CHLORIDE 98 MMOL/L (98-107); POTASSIUM 4.3 MMOL/L (3.6-5.0); SODIUM 135 MMOL/L (135-145)
[2020-07-25 06:10] LABS: CALCIUM 8.2 MG/DL (8.5-10.1)
[2020-07-25 06:11] LABS: GLUCOSE 117 MG/DL (70-105); TOTAL PROTEIN 5.6 GM/DL (6.4-8.2)
[2020-07-25 06:12] LABS: CARBON DIOXIDE 24 MMOL/L (21-32)
[2020-07-25 06:13] LABS: BILIRUBIN,TOTAL 0.4 MG/DL (0.1-1.0)
[2020-07-25 06:14] LABS: ALKALINE PHOSPHATASE 76 U/L (40-136)
[2020-07-25 06:15] LABS: GFR ESTIMATED > 60
[2020-07-25 06:16] LABS: BUN/CREATININE RATIO 21
[2020-07-25 06:18] LABS: ALANINE AMINOTRANSFERASE 9 U/L (0-55)
--- NOTE | 2020-07-25 07:20 | NUR ---
pt was placed on room air for 30 minutes.after 2 minutes pt desaturated to 88%. pt was then place on 1L of 02 and came up to 92%. pt will need 1l on exursion. Addendum: 07/25/20 at 0720 by DON LUONG RT Amended: Links added. Addendum: 07/25/20 at 0749 by DON LUONG RT pt was turned to room air for 30minutes. pt desaturated after 15 minutes to 87%. pt was then placed to 2L of 02. pt then came up to 90%. pt will need 2L continuously.
[2020-07-25] MEDS: APIXABAN 5 MG (ELIQUIS) TABLET PO SCH (08:54)
[2020-07-25] MEDS: CARVEDILOL 12.5 MG (COREG) TABLET PO SCH (08:54)
[2020-07-25] MEDS: ASPIRIN E.C. 81 MG (ECOTRIN) TAB PO SCH (08:54)
[2020-07-25] MEDS: inSUlin ASPART (NovoLOG) 1 UNIT/0.01 ML (CHARGE PER UNIT) SC SCH ×2 (08:54→12:40)
[2020-07-25] MEDS: lisINopril 40 MG (PRINIVIL) TABLET PO SCH (08:54)
[2020-07-25] MEDS: amLODIPine 5 MG (NORVASC) TAB PO SCH (08:54)
[2020-07-25] MEDS: PANTOPRAZOLE 40 MG (PROTONIX) TAB PO SCH (08:54)
--- NOTE | 2020-07-25 11:29 | NUR ---
Pt may be discharged today and Home Oxygen study reveals he will need 2 liters of Oxygen continuously at home. is home and also has Co-vid virus. Currently there is a oxygen supply shortage due to the pandemic but did find [facility] in [place] capable of providing home oxygen and will set up in the home if is there. They are aware of her positive Co Vid virus. Awaiting physician orders for home oxygen.
[2020-07-25] MEDS ORDERED: ASPI-1238 PO (11:40)
[2020-07-25] MEDS ORDERED: PROM5SYR PO (11:40)
[2020-07-25] MEDS ORDERED: APIX5TAB PO (11:40)
[2020-07-25] MEDS ORDERED: GLYB1.253 PO (11:40)
[2020-07-25] MEDS ORDERED: ALBU18HF2 IH (11:40)
[2020-07-25] MEDS ORDERED: DEXA2TAB PO (11:40)
--- NOTE | 2020-07-25 11:43 | D/C HH Face to Face Order ---
D/C Face to Face Orders Reconcile Patient Problems Problems Reviewed?: Yes Instructions for Patient [facility] Patient Instructions/FollowUp: Ata Adair next week Physician to follow Patient: Giovany Discharge Diet for Home: ADA Diet Patient Problems: COVID-19 New onset DM New home O2 Patient Data-Allergies,Ht & Wt Patient Allergies: Coded Allergies: No Known Drug Allergies (Unverified , 07/17/20) Home Health Need/Face to Face Date of Face to Face: Jul 25, 2020 Clinical Findings: Generalized weakness and fatigue, Instability, Muscle weakness, Shortness of breath, Unsteady gait I have seen Pt [id number]: Yes Discharged To: Home Diagnosis/Conditions: COVID-19 New onset DM New home O2 Patient is Homebound due to: Iraj fall risk due to instabilty, Shortness of breath/distress Homebound Status Due to the above stated illness, injury or surgical procedure (medical condit ion or diagnosis) and associated clinical findings, the patient is homebound because of his/her inability to leave home except with aid of a supportive device and/or person AND leaving the home requires a considerable and taxing effort or is medically contraindicated. Pt req the following assistanc: [facility] Nursing Orders Home Health Services Order: Nursing Services, Fan Mail Editor-Evaluate & Treat, Physical Therapy-Evaluate & Treat Home Health Infusion Therapy Line Start Date: Jul 17, 2020 Certify Stmt I certify that this patient is under my care and that I, a nurse practitioner or a physician; a assistant operations manager working with me, had a face to face encounter that - meets the physician face to face encounter requirements with this patient as dated. NANDINI KELLEY DO Jul 25, 2020 11:42
--- NOTE | 2020-07-25 11:45 | Discharge Summary ---
Diagnosis/Chief Complaint Date of Admission Jul 17, 2020 at 11:07 Date of Discharge Discharge Date: Jul 25, 2020 Discharge Diagnosis Assessment: COVID-19 [place] [facility] [place] CAD previous stents and CABG HTN New onset DM insulin dependence now [id number] Plan: Insulin Cardiology Abx O2 07/18/20: Insulin decrease Cardiology appreciated O2 07/19/20: Monitor in ICU Vtachy monitoring 07/20/20: Monitor closely CSD move Vapotherm 07/22/20: Move to 4th floor PT OT Monitor O2 07/23/20: Back on Vapotherm Monitor closely Wean O2 PT OT Discharge Summary Discharge Physical Examination Allergies: Coded Allergies: No Known Drug Allergies (Unverified , 07/17/20) Vitals & I&Os Vital Signs Date Time Temp Pulse Resp B/P (MAP) Pulse Ox O2 Delivery O2 Flow Rate FiO2 07/25/20 15:00 36.0 55 20 132/64 95 High Flow N/C 2.00 07/23/20 21:27 40 General Appearance: Alert, Oriented X3, Cooperative Respiratory: Clear to Auscultation, Normal Air Movement Neuro: Normal Gait Psych/Mental Status: Mental Status NL Hospital Course Was the Problem List Reviewed?: Yes Lengthy course after [place] [facility] [place] due to COVID-19 induced V- tach requiring Cardiology management. Patient required close observation in the ICU and a few meds were changed and monitored for V-tach closely. Patient required Vapotherm and IV steroids and insulin and MDI's. Patient ultimately was able to be transferred to 4th floor and wean down off O2 and ultimately DC home in improved condition. Labs (last 24 hrs) Laboratory Tests 07/17/20 11:16: Blood Gas Puncture Site LEFT RADIAL, Blood Gas Patient Temperature 35.2, Arterial Blood pH 7.45H, Arterial Blood Partial Pressure CO2 30L, Arterial Blood Partial Pressure O2 130H, Arterial Blood HCO3 21L, Arterial Blood Total CO2 22.1, Arterial Blood Oxygen Saturation 99, Arterial Blood Base Excess -2.6L, Floyd Test POSITIVE, Blood Gas Ventilator Setting NO, Blood Gas Inspired Oxygen 35 L AT 95% 07/17/20 11:20: White Blood Count 6.3, Red Blood Count 4.94, Hemoglobin 13.8, Hematocrit 41, Mean Corpuscular Volume 84, Mean Corpuscular Hemoglobin 28, Mean Corpuscular Hemoglobin Concent 33, Red Cell Distribution Width 11.9, Platelet Count 318, Mean Platelet Volume 11.1, Immature Granulocyte % (Auto) 4, Neutrophils (%) (Auto) 80H, Lymphocytes (%) (Auto) 11L, Monocytes (%) (Auto) 5, Eosinophils (%) (Auto) 0, Basophils (%) (Auto) 0, Neutrophils # (Auto) 5.1, Lymphocytes # (Auto) 0.7L, Monocytes # (Auto) 0.3, Eosinophils # (Auto) 0.0, Basophils # (Auto) 0.0, Immature Granulocyte # (Auto) 0.3H, D-Dimer 0.60H, Sodium Level 128L, Potassium Level 4.4, Chloride Level 99, Carbon Dioxide Level 23, Anion Gap 6, Blood Urea Nitrogen 26H, Creatinine 1.10, Estimat Glomerular Filtration Rate > 60, BUN/Creatinine Ratio 24, Glucose Level 301H, Calcium Level 7.9L, Corrected Calcium 8.8, Magnesium Level 2.6H, Ferritin 553.3H, Total Bilirubin 0.3, Aspartate Amino Transf (AST/SGOT) 23, Alanine Aminotransferase (ALT/SGPT) 8, Alkaline Phosphatase 76, Troponin I < 0.028, B-Type Natriuretic Peptide 38.5, Total Protein 6.1L, Albumin 2.9L, Procalcitonin 0.07 07/17/20 14:00: Urine Color YELLOW, Urine Clarity CLEAR, Urine pH 6.0, Urine Specific [place] 1. 020, Urine Protein TRACEH, Urine Glucose (UA) 2+H, Urine Ketones NEGATIVE, Urine Nitrite NEGATIVE, Urine Bilirubin NEGATIVE, Urine Urobilinogen 0.2, Urine Leukocyte Esterase NEGATIVE, Urine RBC (Auto) 3+H, Urine RBC 10-25H, Urine WBC NONE, Urine Squamous Epithelial Cells 0-2, Urine Crystals PRESENTH, Urine Amorphous Sediment FEW [place] URATESH, Urine Bacteria TRACE, Urine Casts NONE, U rine Mucus NEGATIVE, Urine Culture Indicated NO 07/17/20 16:02: Glucometer 271H 07/17/20 20:28: Glucometer 201H 07/18/20 05:36: White Blood Count 14.3H, Red Blood Count 4.99, Hemoglobin 14.0, Hematocrit 42, Mean Corpuscular Volume 85, Mean Corpuscular Hemoglobin 28, Mean Corpuscular Hemoglobin Concent 33, Red Cell Distribution Width 12.1, Platelet Count 347, M slick Platelet Volume 10.7, Immature Granulocyte % (Auto) 4, Neutrophils (%) (Auto) 74, Lymphocytes (%) (Auto) 14, Monocytes (%) (Auto) 7, Eosinophils (%) (Auto) 1, Basophils (%) (Auto) 0, Neutrophils # (Auto) 10.5H, Lymphocytes # (Auto) 2.0, Monocytes # (Auto) 1.0, Eosinophils # (Auto) 0.1, Basophils # (Auto) 0.1, Immature Granulocyte # (Auto) 0.6H, Neutrophils % (Manual) 84, Lymphocytes % (Manual) 8, Monocytes % (Manual) 8, Blood Morphology Comment NORMAL, Sodium Level 133L, Potassium Level 3.7, Chloride Level 103, Carbon Dioxide Level 22, Anion Gap 8, Blood Urea Nitrogen 25H, Creatinine 1.04, Estimat Glomerular Filtration Rate > 60, BUN/Creatinine Ratio 24, Glucose Level 49*L, Calcium Level 8.0L, Corrected Calcium 8.9, Phosphorus Level 3.9, Magnesium Level 2.7H, Total Bilirubin 0.3, Aspartate Amino Transf (AST/SGOT) 28, Alanine Aminotransferase (ALT/SGPT) 9, Alkaline Phosphatase 73, Troponin I < 0.028, Total Protein 5.7L, Albumin 2.9L 07/18/20 06:50: Glucometer 200H 07/18/20 08:24: Glucometer 151H 07/18/20 10:04: Glucometer 175H 07/18/20 15:59: Glucometer 234H 07/18/20 20:31: Glucometer 194H 07/19/20 05:10: Sodium Level 131L, Potassium Level 4.3, Chloride Level 100, Carbon Dioxide Level 23, Anion Gap 8, Blood Urea Nitrogen 19H, Creatinine 0.91, Estimat Glomerular Filtration Rate > 60, BUN/Creatinine Ratio 21, Glucose Level 98, Calcium Level 7.9L, Phosphorus Level 3.8, Magnesium Level 1.7, Procalcitonin 0.14H 07/19/20 05:30: White Blood Count 10.1, Red Blood Count 4.59, Hemoglobin 13.0L, Hematocrit 39L, Mean Corpuscular Volume 85, Mean Corpuscular Hemoglobin 28, Mean Corpuscular Hemoglobin Concent 34, Red Cell Distribution Width 12.2, Platelet Count 310, Mean Platelet Volume 11.2, Immature Granulocyte % (Auto) 4, Neutrophils (%) (Auto) 78H, Lymphocytes (%) (Auto) 12, Monocytes (%) (Auto) 6, Eosinophils (%) (Auto) 0, Basophils (%) (Auto) 0, Neutrophils # (Auto) 7.9H, Lymphocytes # (Auto) 1.2, Monocytes # (Auto) 0.6, Eosinophils # (Auto) 0.0, Basophils # (Auto) 0.0, Immature Granulocyte # (Auto) 0.4H 07/19/20 06:00: Glucometer 96 07/19/20 11:46: Glucometer 229H 07/19/20 11:50: Sodium Level 130L, Potassium Level 4.7, Chloride Level 99, Carbon Dioxide Level 23, Anion Gap 8, Blood Urea Nitrogen 22H, Creatinine 1.00, Estimat Glomerular Filtration Rate > 60, BUN/Creatinine Ratio 22, Glucose Level 236H, Calcium Level 8.1L 07/19/20 16:00: Glucometer 234H 07/19/20 19:25: Glucometer 286H 07/20/20 04:43: White Blood Count 15.3H, Red Blood Count 4.99, Hemoglobin 14.1, Hematocrit 42, Mean Corpuscular Volume 85, Mean Corpuscular Hemoglobin 28, Mean Corpuscular Hemoglobin Concent 33, Red Cell Distribution Width 12.3, Platelet Count 353, Mean Platelet Volume 10.7, Immature Granulocyte % (Auto) 4, Neutrophils (%) (Auto) 71, Lymphocytes (%) (Auto) 18, Monocytes (%) (Auto) 7, Eosinophils (%) (Auto) 0, Basophils (%) (Auto) 0, Neutrophils # (Auto) 10.8H, Lymphocytes # (Auto) 2.8, Monocytes # (Auto) 1.0, Eosinophils # (Auto) 0.1, Basophils # (Auto) 0.0, Immature Granulocyte # (Auto) 0.6H, Sodium Level 133L, Potassium Level 4.2, Chloride Level 101, Carbon Dioxide Level 23, Anion Gap 9, Blood Urea Nitrogen 22H, Creatinine 0.98, Estimat Glomerular Filtration Rate > 60, BUN/Creatinine Ratio 22, Glucose Level 43*L, Calcium Level 8.4L, Phosphorus Level 4.1, Magnesium Level 1.9 07/20/20 05:44: Glucometer 52*L 07/20/20 06:19: Glucometer 76 07/20/20 10:44: Glucometer 275H 07/20/20 17:26: Glucometer 266H 07/20/20 19:48: Glucometer 208H 07/21/20 04:37: White Blood Count 10.9, Red Blood Count 4.76, Hemoglobin 13.3, Hematocrit 40, Mean Corpuscular Volume 85, Mean Corpuscular Hemoglobin 28, Mean Corpuscular Hemoglobin Concent 33, Red Cell Distribution Width 12.1, Platelet Count 306, Mean Platelet Volume 10.8, Immature Granulocyte % (Auto) 4, Neutrophils (%) (Auto) 76H, Lymphocytes (%) (Auto) 15, Monocytes (%) (Auto) 5, Eosinophils (%) (Auto) 0, Basophils (%) (Auto) 0, Neutrophils # (Auto) 8.3H, Lymphocytes # (Auto) 1.6, Monocytes # (Auto) 0.6, Eosinophils # (Auto) 0.0, Basophils # (Auto) 0.0, Immature Granulocyte # (Auto) 0.4H, Sodium Level 133L, Potassium Level 4.3, Chloride Level 101, Carbon Dioxide Level 24, Anion Gap 8, Blood Urea Nitrogen 22H, Creatinine 0.88, Estimat Glomerular Filtration Rate > 60, BUN/Creatinine Ratio 25, Glucose Level 75, Calcium Level 8.2L, Phosphorus Level 4.0, Magnesium Level 1.8 07/21/20 11:02: Glucometer 270H 07/21/20 15:50: Glucometer 280H 07/21/20 19:39: Glucometer 268H 07/22/20 03:47: White Blood Count 8.6, Red Blood Count 4.77, Hemoglobin 14.6, Hematocrit 43, Mean Corpuscular Volume 90, Mean Corpuscular Hemoglobin 31, Mean Corpuscular Hemoglobin Concent 34, Red Cell Distribution Width 12.5, Platelet Count 266, Mean Platelet Volume 10.2, Immature Granulocyte % (Auto) 2, Neutrophils (%) (Auto) 81H, Lymphocytes (%) (Auto) 10L, Monocytes (%) (Auto) 7, Eosinophils (%) (Auto) 0, Basophils (%) (Auto) 0, Neutrophils # (Auto) 7.0, Lymphocytes # (Auto) 0.9L, Monocytes # (Auto) 0.6, Eosinophils # (Auto) 0.0, Basophils # (Auto) 0.0, Immature Granulocyte # (Auto) 0.1, Sodium Level 136, Potassium Level 4.3, Chloride Level 103, Carbon Dioxide Level 21, Anion Gap 12, Blood Urea Nitrogen 17, Creatinine 1.00, Estimat Glomerular Filtration Rate > 60, BUN/Creatinine Ratio 17, Glucose Level 114H, Calcium Level 8.6, Corrected Calcium 8.9, Total Bilirubin 0.4, Aspartate Amino Transf (AST/SGOT) 82H, Alanine Aminotransferase (ALT/SGPT) 145H, Alkaline Phosphatase 65, Total Protein 6.8, Albumin 3.6 07/22/20 11:38: Glucometer 251H 07/22/20 15:37: Glucometer 219H 07/22/20 20:23: Glucometer 206H 07/23/20 05:27: White Blood Count 9.8, Red Blood Count 4.28L, Hemoglobin 12.2L, Hematocrit 36L, Mean Corpuscular Volume 85, Mean Corpuscular Hemoglobin 29, Mean Corpuscular Hemoglobin Concent 34, Red Cell Distribution Width 12.2, Platelet Count 287, Mean Platelet Volume 10.5, Immature Granulocyte % (Auto) 4, Neutrophils (%) (Auto) 71, Lymphocytes (%) (Auto) 20, Monocytes (%) (Auto) 6, Eosinophils (%) (Auto) 1, Basophils (%) (Auto) 0, Neutrophils # (Auto) 6.9, Lymphocytes # (Auto) 1.9, Monocytes # (Auto) 0.5, Eosinophils # (Auto) 0.1, Basophils # (Auto) 0.0, Immature Granulocyte # (Auto) 0.3H, D-Dimer 0.91H, Sodium Level 136, Potassium Level 4.4, Chloride Level 100, Carbon Dioxide Level 27, Anion Gap 9, Blood Urea Nitrogen 23H, Creatinine 1.07, Estimat Glomerular Filtration Rate > 60, BUN/Creatinine Ratio 21, Glucose Level 119H, Calcium Level 7.9L, Corrected Calcium 8.9, Ferritin 469.0H, Total Bilirubin 0.4, Aspartate Amino Transf (AST/SGOT) 16, Alanine Aminotransferase (ALT/SGPT) 8, Alkaline Phosphatase 74, B-Type Natriuretic Peptide 20.0, Total Protein 5.2L, Albumin 2.7L, Procalcitonin 0.02 07/23/20 05:33: Glucometer 115H 07/23/20 11:23: Glucometer 187H 07/23/20 15:48: Glucometer 285H 07/23/20 19:56: Glucometer 308H 07/24/20 05:08: Glucometer 99 07/24/20 05:34: White Blood Count 11.1H, Red Blood Count 4.60, Hemoglobin 13.1L, Hematocrit 39L, Mean Corpuscular Volume 85, Mean Corpuscular Hemoglobin 29, Mean Corpuscular Hemoglobin Concent 34, Red Cell Distribution Width 12.0, Platelet Count 267, Mean Platelet Volume 10.5, Immature Granulocyte % (Auto) 2, Neutrophils (%) (Auto) 73, Lymphocytes (%) (Auto) 18, Monocytes (%) (Auto) 6, Eosinophils (%) (Auto) 1, Basophils (%) (Auto) 0, Neutrophils # (Auto) 8.1H, Lymphocytes # (Auto) 2.0, Monocytes # (Auto) 0.6, Eosinophils # (Auto) 0.1, Basophils # (Auto) 0.0, Immature Granulocyte # (Auto) 0.3H, Sodium Level 135, Potassium Level 4.1, Chloride Level 99, Carbon Dioxide Level 29, Anion Gap 7, Blood Urea Nitrogen 24H , Creatinine 1.20, Estimat Glomerular Filtration Rate > 60, BUN/Creatinine Ratio 20, Glucose Level 110H, Calcium Level 8.2L, Corrected Calcium 9.1, Total Bilirubin 0.4, Aspartate Amino Transf (AST/SGOT) 17, Alanine Aminotransferase (ALT/SGPT) 9, Alkaline Phosphatase 82, Total Protein 5.6L, Albumin 2.9L 07/24/20 11:20: Glucometer 135H 07/24/20 16:33: Glucometer 217H 07/24/20 19:41: Glucometer 190H 07/25/20 05:30: Glucometer 113H 07/25/20 05:32: White Blood Count 9.2, Red Blood Count 4.54, Hemoglobin 12.9L, Hematocrit 39L, Mean Corpuscular Volume 86, Mean Corpuscular Hemoglobin 28, Mean Corpuscular Hemoglobin Concent 33, Red Cell Distribution Width 12.0, Platelet Count 267, Mean Platelet Volume 10.6, Immature Granulocyte % (Auto) 2, Neutrophils (%) (Auto) 74, Lymphocytes (%) (Auto) 19, Monocytes (%) (Auto) 5, Eosinophils (%) (Auto) 0, Basophils (%) (Auto) 0, Neutrophils # (Auto) 6.7, Lymphocytes # (Auto) 1.7, Monocytes # (Auto) 0.5, Eosinophils # (Auto) 0.0, Basophils # (Auto) 0.0, Immature Granulocyte # (Auto) 0.2H, Sodium Level 135, Potassium Level 4.3, Chloride Level 98, Carbon Dioxide Level 24, Anion Gap 13, Blood Urea Nitrogen 25H, Creatinine 1.20, Estimat Glomerular Filtration Rate > 60, BUN/Creatinine Ratio 21, Glucose Level 117H, Calcium Level 8.2L, Corrected Calcium 9.0, Total Bilirubin 0.4, Aspartate Amino Transf (AST/SGOT) 14, Alanine Aminotransferase (ALT/SGPT) 9, Alkaline Phosphatase 76, Total Protein 5.6L, Albumin 3.0L 07/25/20 11:16: Glucometer 233H Microbiology 07/17/20 MRSA Screen - Final, Complete MRSA not isolated Pending Labs Microbiology Date/Time Source Procedure Growth Status 07/17/20 11:10 Nasal MRSA Screen - Final MRSA not isolated Complete Laboratory Tests 07/17/20 11:16: Blood Gas Puncture Site LEFT RADIAL, Blood Gas Patient Temperature 35.2, Arterial Blood pH 7.45, Arterial Blood Partial Pressure CO2 30, Arterial Blood Partial Pressure O2 130, Arterial Blood HCO3 21, Arterial Blood Total CO2 22.1, Arterial Blood Oxygen Saturation 99, Arterial Blood Base Excess -2.6, Floyd Test POSITIVE, Blood Gas Ventilator Setting NO, Blood Gas Inspired Oxygen 35 L AT 95% 07/17/20 11:20: White Blood Count 6.3, Red Blood Count 4.94, Hemoglobin 13.8, Hematocrit 41, Mean Corpuscular Volume 84, Mean Corpuscular Hemoglobin 28, Mean Corpuscular Hemoglobin Concent 33, Red Cell Distribution Width 11.9, Platelet Count 318, Mean Platelet Volume 11.1, Immature Granulocyte % (Auto) 4, Neutrophils (%) (Auto) 80, Lymphocytes (%) (Auto) 11, Monocytes (%) (Auto) 5, Eosinophils (%) (Auto) 0, Basophils (%) (Auto) 0, Neutrophils # (Auto) 5.1, Lymphocytes # (Auto) 0.7, Monocytes # (Auto) 0.3, Eosinophils # (Auto) 0.0, Basophils # (Auto) 0.0, Immature Granulocyte # (Auto) 0.3, D-Dimer 0.60, Sodium Level 128, Potassium Level 4.4, Chloride Level 99, Carbon Dioxide Level 23, Anion Gap 6, Blood Urea Nitrogen 26, Creatinine 1.10, Estimat Glomerular Filtration Rate > 60, BUN/Creatinine Ratio 24, Glucose Level 301, Calcium Level 7.9, Corrected Calcium 8.8, Magnesium Level 2.6, Ferritin 553.3, Total Bilirubin 0.3, Aspartate Amino Transf (AST/SGOT) 23, Alanine Aminotransferase (ALT/SGPT) 8, Alkaline Phosphatase 76, Troponin I < 0.028, B-Type Natriuretic Peptide 38.5, Total Protein 6.1, Albumin 2.9, Procalcitonin 0.07 07/17/20 14:00: Urine Color YELLOW, Urine Clarity CLEAR, Urine pH 6.0, Urine Specific [place] 1.020, Urine Protein TRACE, Urine Glucose (UA) 2+, Urine Ketones NEGATIVE, Urine Nitrite NEGATIVE, Urine Bilirubin NEGATIVE, Urine Urobilinogen 0.2, Urine Leukocyte Esterase NEGATIVE, Urine RBC (Auto) 3+, Urine RBC 10-25, Urine WBC NONE, Urine Squamous Epithelial Cells 0-2, Urine Crystals PRESENT, Urine Amorphous Sediment FEW [place] URATES, Urine Bacteria TRACE, Urine Casts NONE, Urine Mucus NEGATIVE, Urine Culture Indicated NO 07/17/20 16:02: Glucometer 271 07/17/20 20:28: Glucometer 201 07/18/20 05:36: White Blood Count 14.3, Red Blood Count 4.99, Hemoglobin 14.0, Hematocrit 42, M slick Corpuscular Volume 85, Mean Corpuscular Hemoglobin 28, Mean Corpuscular Hemoglobin Concent 33, Red Cell Distribution Width 12.1, Platelet Count 347, Mean Platelet Volume 10.7, Immature Granulocyte % (Auto) 4, Neutrophils (%) (Auto) 74, Lymphocytes (%) (Auto) 14, Monocytes (%) (Auto) 7, Eosinophils (%) (Auto) 1, Basophils (%) (Auto) 0, Neutrophils # (Auto) 10.5, Lymphocytes # (A uto) 2.0, Monocytes # (Auto) 1.0, Eosinophils # (Auto) 0.1, Basophils # (Auto) 0.1, Immature Granulocyte # (Auto) 0.6, Neutrophils % (Manual) 84, Lymphocytes % (Manual) 8, Monocytes % (Manual) 8, Blood Morphology Comment NORMAL, Sodium Level 133, Potassium Level 3.7, Chloride Level 103, Carbon Dioxide Level 22, Anion Gap 8, Blood Urea Nitrogen 25, Creatinine 1.04, Estimat Glomerular Filtration Rate > 60, BUN/Creatinine Ratio 24, Glucose Level 49, Calcium Level 8.0, Corrected Calcium 8.9, Phosphorus Level 3.9, Magnesium Level 2.7, Total Bilirubin 0.3, Aspartate Amino Transf (AST/SGOT) 28, Alanine Aminotransferase (ALT/SGPT) 9, Alkaline Phosphatase 73, Troponin I < 0.028, Total Protein 5.7, Albumin 2.9 07/18/20 06:50: Glucometer 200 07/18/20 08:24: Glucometer 151 07/18/20 10:04: Glucometer 175 07/18/20 15:59: Glucometer 234 07/18/20 20:31: Glucometer 194 07/19/20 05:10: Sodium Level 131, Potassium Level 4.3, Chloride Level 100, Carbon Dioxide Level 23, Anion Gap 8, Blood Urea Nitrogen 19, Creatinine 0.91, Estimat Glomerular Filtration Rate > 60, BUN/Creatinine Ratio 21, Glucose Level 98, Calcium Level 7.9, Phosphorus Level 3.8, Magnesium Level 1.7, Procalcitonin 0.14 07/19/20 05:30: White Blood Count 10.1, Red Blood Count 4.59, Hemoglobin 13.0, Hematocrit 39, Mean Corpuscular Volume 85, Mean Corpuscular Hemoglobin 28, Mean Corpuscular Hemoglobin Concent 34, Red Cell Distribution Width 12.2, Platelet Count 310, Mean Platelet Volume 11.2, Immature Granulocyte % (Auto) 4, Neutrophils (%) (Auto) 78, Lymphocytes (%) (Auto) 12, Monocytes (%) (Auto) 6, Eosinophils (%) (Auto) 0, Basophils (%) (Auto) 0, Neutrophils # (Auto) 7.9, Lymphocytes # (Auto) 1.2, Monocytes # (Auto) 0.6, Eosinophils # (Auto) 0.0, Basophils # (Auto) 0.0, Immature Granulocyte # (Auto) 0.4 07/19/20 06:00: Glucometer 96 07/19/20 11:46: Glucometer 229 07/19/20 11:50: Sodium Level 130, Potassium Level 4.7, Chloride Level 99, Carbon Dioxide Level 23, Anion Gap 8, Blood Urea Nitrogen 22, Creatinine 1.00, Estimat Glomerular Filtration Rate > 60, BUN/Creatinine Ratio 22, Glucose Level 236, Calcium Level 8.1 07/19/20 16:00: Glucometer 234 07/19/20 19:25: Glucometer 286 07/20/20 04:43: White Blood Count 15.3, Red Blood Count 4.99, Hemoglobin 14.1, Hematocrit 42, Mean Corpuscular Volume 85, Mean Corpuscular Hemoglobin 28, Mean Corpuscular Hemoglobin Concent 33, Red Cell Distribution Width 12.3, Platelet Count 353, Mean Platelet Volume 10.7, Immature Granulocyte % (Auto) 4, Neutrophils (%) (Auto) 71, Lymphocytes (%) (Auto) 18, Monocytes (%) (Auto) 7, Eosinophils (%) (Auto) 0, Basophils (%) (Auto) 0, Neutrophils # (Auto) 10.8, Lymphocytes # (Auto) 2.8, Monocytes # (Auto) 1.0, Eosinophils # (Auto) 0.1, Basophils # (Auto) 0.0, Immature Granulocyte # (Auto) 0.6, Sodium Level 133, Potassium Level 4.2, Chloride Level 101, Carbon Dioxide Level 23, Anion Gap 9, Blood Urea Nitrogen 22, Creatinine 0.98, Estimat Glomerular Filtration Rate > 60, BUN/Creatinine Ratio 22, Glucose Level 43, Calcium Level 8.4, Phosphorus Level 4.1, Magnesium Level 1.9 07/20/20 05:44: Glucometer 52 07/20/20 06:19: Glucometer 76 07/20/20 10:44: Glucometer 275 07/20/20 17:26: Glucometer 266 07/20/20 19:48: Glucometer 208 07/21/20 04:37: White Blood Count 10.9, Red Blood Count 4.76, Hemoglobin 13.3, Hematocrit 40, Mean Corpuscular Volume 85, Mean Corpuscular Hemoglobin 28, Mean Corpuscular Hemoglobin Concent 33, Red Cell Distribution Width 12.1, Platelet Count 306, Mean Platelet Volume 10.8, Immature Granulocyte % (Auto) 4, Neutrophils (%) (Auto) 76, Lymphocytes (%) (Auto) 15, Monocytes (%) (Auto) 5, Eosinophils (%) (Auto) 0, Basophils (%) (Auto) 0, Neutrophils # (Auto) 8.3, Lymphocytes # (Auto) 1.6, Monocytes # (Auto) 0.6, Eosinophils # (Auto) 0.0, Basophils # (Auto) 0.0, Immature Granulocyte # (Auto) 0.4, Sodium Level 133, Potassium Level 4.3, Chloride Level 101, Carbon Dioxide Level 24, Anion Gap 8, Blood Urea Nitrogen 22, Creatinine 0.88, Estimat Glomerular Filtration Rate > 60, BUN/Creatinine Ratio 25, Glucose Level 75, Calcium Level 8.2, Phosphorus Level 4.0, Magnesium Level 1.8 07/21/20 11:02: Glucometer 270 07/21/20 15:50: Glucometer 280 07/21/20 19:39: Glucometer 268 07/22/20 03:47: White Blood Count 8.6, Red Blood Count 4.77, Hemoglobin 14.6, Hematocrit 43, Mean Corpuscular Volume 90, Mean Corpuscular Hemoglobin 31, Mean Corpuscular Hemoglobin Concent 34, Red Cell Distribution Width 12.5, Platelet Count 266, Mean Platelet Volume 10.2, Immature Granulocyte % (Auto) 2, Neutrophils (%) (Auto) 81, Lymphocytes (%) (Auto) 10, Monocytes (%) (Auto) 7, Eosinophils (%) (Auto) 0, Basophils (%) (Auto) 0, Neutrophils # (Auto) 7.0, Lymphocytes # (Auto) 0.9, Monocytes # (Auto) 0.6, Eosinophils # (Auto) 0.0, Basophils # (Auto) 0.0, Immature Granulocyte # (Auto) 0.1, Sodium Level 136, Potassium Level 4.3, Chloride Level 103, Carbon Dioxide Level 21, Anion Gap 12, Blood Urea Nitrogen 17, Creatinine 1.00, Estimat Glomerular Filtration Rate > 60, BUN/Creatinine Ratio 17, Glucose Level 114, Calcium Level 8.6, Corrected Calcium 8.9, Total Bilirubin 0.4, Aspartate Amino Transf (AST/SGOT) 82, Alanine Aminotransferase (ALT/SGPT) 145, Alkaline Phosphatase 65, Total Protein 6.8, Albumin 3.6 07/22/20 11:38: Glucometer 251 07/22/20 15:37: Glucometer 219 07/22/20 20:23: Glucometer 206 07/23/20 05:27: White Blood Count 9.8, Red Blood Count 4.28, Hemoglobin 12.2, Hematocrit 36, Mean Corpuscular Volume 85, Mean Corpuscular Hemoglobin 29, Mean Corpuscular Hemoglobin Concent 34, Red Cell Distribution Width 12.2, Platelet Count 287, Mean Platelet Volume 10.5, Immature Granulocyte % (Auto) 4, Neutrophils (%) (Auto) 71, Lymphocytes (%) (Auto) 20, Monocytes (%) (Auto) 6, Eosinophils (%) (Auto) 1, Basophils (%) (Auto) 0, Neutrophils # (Auto) 6.9, Lymphocytes # (Auto) 1.9, Monocytes # (Auto) 0.5, Eosinophils # (Auto) 0.1, Basophils # (Auto) 0.0, Immature Granulocyte # (Auto) 0.3, D-Dimer 0.91, Sodium Level 136, Potassium Level 4.4, Chloride Level 100, Carbon Dioxide Level 27, Anion Gap 9, Blood Urea Nitrogen 23, Creatinine 1.07, Estimat Glomerular Filtration Rate > 60, BUN/Creatinine Ratio 21, Glucose Level 119, Calcium Level 7.9, Corrected Calcium 8.9, Ferritin 469.0, Total Bilirubin 0.4, Aspartate Amino Transf (AST/SGOT) 16, Alanine Aminotransferase (ALT/SGPT) 8, Alkaline Phosphatase 74, B-Type Natriuretic Peptide 20.0, Total Protein 5.2, Albumin 2.7, Procalcitonin 0.02 07/23/20 05:33: Glucometer 115 07/23/20 11:23: Glucometer 187 07/23/20 15:48: Glucometer 285 07/23/20 19:56: Glucometer 308 07/24/20 05:08: Glucometer 99 07/24/20 05:34: White Blood Count 11.1, Red Blood Count 4.60, Hemoglobin 13.1, Hematocrit 39, Mean Corpuscular Volume 85, Mean Corpuscular Hemoglobin 29, Mean Corpuscular Hemoglobin Concent 34, Red Cell Distribution Width 12.0, Platelet Count 267, Me an Platelet Volume 10.5, Immature Granulocyte % (Auto) 2, Neutrophils (%) (Auto) 73, Lymphocytes (%) (Auto) 18, Monocytes (%) (Auto) 6, Eosinophils (%) (Auto) 1, Basophils (%) (Auto) 0, Neutrophils # (Auto) 8.1, Lymphocytes # (Auto) 2.0, Monocytes # (Auto) 0.6, Eosinophils # (Auto) 0.1, Basophils # (Auto) 0.0, Immature Granulocyte # (Auto) 0.3, Sodium Level 135, Potassium Level 4.1, Chloride Level 99, Carbon Dioxide Level 29, Anion Gap 7, Blood Urea Nitrogen 24, Creatinine 1.20, Estimat Glomerular Filtration Rate > 60, BUN/Creatinine Ratio 20, Glucose Level 110, Calcium Level 8.2, Corrected Calcium 9.1, Total Bilirubin 0.4, Aspartate Amino Transf (AST/SGOT) 17, Alanine Aminotransferase (ALT/SGPT) 9, Alkaline Phosphatase 82, Total Protein 5.6, Albumin 2.9 07/24/20 11:20: Glucometer 135 07/24/20 16:33: Glucometer 217 07/24/20 19:41: Glucometer 190 07/25/20 05:30: Glucometer 113 07/25/20 05:32: White Blood Count 9.2, Red Blood Count 4.54, Hemoglobin 12.9, Hematocrit 39, Mean Corpuscular Volume 86, Mean Corpuscular Hemoglobin 28, Mean Corpuscular Hemoglobin Concent 33, Red Cell Distribution Width 12.0, Platelet Count 267, Mean Platelet Volume 10.6, Immature Granulocyte % (Auto) 2, Neutrophils (%) (Auto) 74, Lymphocytes (%) (Auto) 19, Monocytes (%) (Auto) 5, Eosinophils (%) (Auto) 0, Basophils (%) (Auto) 0, Neutrophils # (Auto) 6.7, Lymphocytes # (Auto) 1.7, Monocytes # (Auto) 0.5, Eosinophils # (Auto) 0.0, Basophils # (Auto) 0.0, Immature Granulocyte # (Auto) 0.2, Sodium Level 135, Potassium Level 4.3, Chloride Level 98, Carbon Dioxide Level 24, Anion Gap 13, Blood Urea Nitrogen 25, Creatinine 1.20, Estimat Glomerular Filtration Rate > 60, BUN/Creatinine Ratio 21, Glucose Level 117, Calcium Level 8.2, Corrected Calcium 9.0, Total Bilirubin 0.4, Aspartate Amino Transf (AST/SGOT) 14, Alanine Aminotransferase (ALT/SGPT) 9, Alkaline Phosphatase 76, Total Protein 5.6, Albumin 3.0 07/25/20 11:16: Glucometer 233 Discharge Home Medications: Active Scripts Active Dexamethasone 2 Mg Tablet 2 Mg PO DAILY Glyburide 1.25 Mg Tablet 1.25 Mg PO DAILY Aspirin EC (Aspirin) 81 Mg Tablet.dr 81 Mg PO DAILY Ventolin Hfa (Albuterol Sulfate) 18 Gm Hfa.aer.ad 0 Gm IH RTQ4HR Eliquis (Apixaban) 5 Mg Tablet 5 Mg PO BID Prometh-Codein 6.25-10 mg/5 ml (Promethazine HCl/Codeine) 5 Ml Syrup 5 Ml PO Q4 -6H PRN Reported Centrum Silver Tablet (Multivit-Min/FA/Lycopene/Lut) 1 Each Tablet 1 Each PO DAILY Omeprazole 40 Mg Capsule.dr 40 Mg PO DAILY Lovastatin 40 Mg Tablet 40 Mg PO HS Benzonatate 100 Mg Capsule 100-200 Mg PO Q4 -6H PRN Terazosin HCl 5 Mg Capsule 5 Mg PO HS Carvedilol 12.5 Mg Tablet 12.5 Mg PO BID Felodipine ER (Felodipine) 5 Mg Tab.er.24h 5 Mg PO DAILY Lisinopril 40 Mg Tablet 40 Mg PO HS Instructions to patient/family Please see electronic discharge instructions given to patient. Diagnosis/Problems Diagnosis/Problems (1) COVID-19 (2) Ventricular tachycardia (3) CAD (coronary artery disease) (4) Hx of CABG (5) Diabetes mellitus, new onset (6) Obesity (7) Hypoxia (8) Hypertension Clinical Quality Measures DVT/VTE Risk/Contraindication: Risk Factor Score Per Nursin RFS Level Per Nursing on Admit: 4+=Very High NANDINI KELLEY DO Jul 25, 2020 11:45
--- NOTE | 2020-07-25 13:48 | NUR ---
Discharge plans initiated. Physician orders sent to [facility] to supply home oxygen. They will be setting up oxygen at pt's home and bring portable tank to the hospital for pt transport. Physician orders sent to [facility] which was pt choice after reviewing local providers. Pt's also ill with Co-Vid feels too ill to transport pt so arrangements made with [facility] to transport pt. Transport time set at 1500.
[2020-07-25 15:00] VITALS: BP 132/64
--- NOTE | 2020-07-26 11:17 | Physician Query Clarification ---
[facility] Manifestation-Etiology Admission/Discharge Admission Date: Jul 17, 2020 at 11:07 Discharge Date: Jul 25, 2020 at 15:50 Dr. Mistry, The medical record reflects the following clinical scenario: History/Risk Factors: Covid pneumonia, bacterial pneumonia, ventricular tachycardia Clinical Findings: v tach noted on telemetry Treatment: IV Amiodarone Question: Can you specify if the ventricular tachycardia is due to/associated with Covid 19? Please document a response in the Progress Note or Discharge Summary. 1. Yes - ventricular tachycardia is due to/associated with Covid 19. 2. No - ventricular tachycardia is not due to/associated with Covid 19. 3. Other, with explanation of the clinical findings. 4. Clinically undetermined, no explanation for the clinical findings. PHYSICIAN RESPONSE Manifestation due to/assoic: Yes Please remember a lack of response to the above will prompt a phone page by [facility] staff. In responding to this query, please exercise your independent professional judgment. The purpose of this communication is to more accurately reflect the complexity of your patients condition. The fact that a question is asked does not imply that any particular answer is desired or expected. Thank you for your timely response to this clarification. Requestors name: [email or web address] THIS PHYSICIAN QUERY FORM IS A PERMANENT PART OF THE MEDICAL RECORD KEREN PRADO Jul 26, 2020 11:17 NANDINI MISTRY DO Jul 26, 2020 12:05
== END 2020-07-25 15:50 | disposition home health service (06) | DRG 177 ==
LOC: ICU 11:07 → CSD 07-21 17:35 → 4TH 07-22 18:08
PROVIDERS: ADMIT Internal Medicine; ATTEND Internal Medicine
PROC: XW033E5 Introduction of Remdesivir Anti-infective into Peripheral Vein, Percutaneous Approach, New Technology Group 5 (ICD-10-PCS; principal; 2020-07-18)
PROC: XW13325 Transfusion of Convalescent Plasma (Nonautologous) into Peripheral Vein, Percutaneous Approach, New Technology Group 5 (ICD-10-PCS; 2020-07-20)
DX: U07.1 COVID-19 (principal); J12.82 Pneumonia due to coronavirus disease 2019; J15.9 Unspecified bacterial pneumonia; J96.01 Acute respiratory failure with hypoxia; I47.2 Ventricular tachycardia; E87.1 Hypo-osmolality and hyponatremia; E11.65 Type 2 diabetes mellitus with hyperglycemia; Z79.4 Long term (current) use of insulin; I25.5 Ischemic cardiomyopathy; I10 Essential (primary) hypertension; I25.10 Atherosclerotic heart disease of native coronary artery without angina pectoris; E78.00 Pure hypercholesterolemia, unspecified; I95.9 Hypotension, unspecified; I73.9 Peripheral vascular disease, unspecified; R00.1 Bradycardia, unspecified; Z95.1 Presence of aortocoronary bypass graft; Z95.5 Presence of coronary angioplasty implant and graft; Z86.718 Personal history of other venous thrombosis and embolism; Z79.02 Long term (current) use of antithrombotics/antiplatelets; Z73.0 Burn-out
CPT/HCPCS: 36415; 71045; 71260; 74177; 80048; 80053; 81000; 82728; 82805; 82962; 83735; 83880; 84100; 84145; 84484; 85007; 85025; 85027; 85379; 86900; 86901; 87081; 93005; 93308; 94640; 94664; 94760